=== PATIENT | male | born 1995 | race Caucasian/White ===

== ENCOUNTER 2018-09-05 12:34 | Emergency (ER) | payer SELFPAY ==
[2018-09-05 12:35] VITALS: BP 113/50; PULSE 65; RESP 16; TEMP 36.6; O2SAT 98; BMI 25.0
--- NOTE | 2018-09-05 12:42 | RAD_ITS ---
STUDY: X-RAY - LEFT HAND REASON FOR EXAM: Male, 23 years old. Laceration. TECHNIQUE: 3 view(s) of the hand. COMPARISON: None. FINDINGS: Normal radiocarpal articulation. Normal distal radioulnar joint. Normal visualized carpal bones. Normal carpal articulations Normal carpometacarpal articulation of the thumb. Normal second through fifth carpometacarpal joints. Normal metacarpi. Normal metacarpophalangeal joint of the thumb. Normal interphalangeal joint of the thumb. Normal proximal and distal phalanges of the thumb. Normal metacarpophalangeal joints of the second through fifth fingers. Normal proximal and distal interphalangeal joints of the second through fifth fingers. Normal phalanges of the second through fifth fingers. The soft tissue structures are unremarkable. RAD/Hand Min 3 Views IMPRESSION: Normal x-ray examination of the hand. Electronically Signed: Yao Bhatia MD at 13:18 EDT , Service support ,
[2018-09-05] MEDS: Bupivacaine Mpf 0.5% 30 ML VIAL INFILT (12:57)
--- NOTE | 2018-09-05 13:20 | ED.VISSUMM ---
- ER Visit Summary Date of Service: 09/05/18 Chief Complaint: Left index finger injury History of Present Illness: The patient is a 23 M who is right-hand dominant presents to the emergency department with left index finger injury. Patient states he was using a hedge stripper. He states he is holding it with his right hand and swung it. Came out of the head and got into his finger. He had immediate pain and bleeding. He denies any weakness. His tetanus is up-to-date. He denies any other injury. Physical Examination: Patient has a 3 cm full-thickness laceration that starts on the dorsum of the right index finger. PIP and runs medially. He is able to flex and extend against opposition. His two-point discrimination is preserved. His cap refill is less than 2 seconds. There is no pulsatile bleeding. Test Results: [] Emergency Department Course and Treatment: Plain films were obtained of the hand. There is no evidence of acute fracture or bony disruption. Patient underwent digital block with bupivacaine. Turnicot was applied. The wound was explored. I do not see any definitive evidence of tendinous injury. He is able to fully range. The laceration does not extend into the joint. There is no evidence of arterial injury. The wound was aggressively irrigated. It was closed loosely with 6 simple interrupted suture. As there was deep tissue injury, I am going to place him on Keflex. I am going to have the patient follow-up with orthopedics for reevaluation within the next 3 days. I also counseled him that if his symptoms are worsening, he has any increasing redness, he should return to the emergency department if he cannot be seen. He is comfortable with this plan of care. Treatment Plan: [] Disposition: Discharge Impression: 1. 3 cm left index finger laceration This note was generated with [employer] dictation software. It may contain incorrect words, spelling, and punctuation that were not noted in review of the chart prior to signing ED Disposition - Plan for ED Patient: Instructions: LACERATION, Hand Prescriptions: Cephalexin [Keflex] 500 mg PO Q6 #40 cap Prescription Printed Referrals: Joaquin Quan MD [STAFF PHYSICIAN] - 2 Days for wound check
[2018-09-05 13:42] VITALS: RESP 16
== END 2018-09-05 13:43 | disposition home or self-care (01) ==
PROVIDERS: Emergency Provider Emergency Medicine
DX: S61.211A Laceration without foreign body of left index finger without damage to nail, initial encounter (principal); W26.8XXA Contact with other sharp object(s), not elsewhere classified, initial encounter; Y93.9 Activity, unspecified; Y92.9 Unspecified place or not applicable
CPT/HCPCS: 12002; 73130; 99283

== ENCOUNTER 2019-11-03 15:36 | Emergency (ER) | payer SELFPAY ==
[2019-11-03 15:36] VITALS: BP 133/80; PULSE 102; RESP 16; TEMP 36.4; O2SAT 97; BMI 24.5
--- NOTE | 2019-11-03 15:53 | ED.VISSUMM ---
- ER Visit Summary Date of Service: 11/03/19 Chief Complaint: Abdominal pain History of Present Illness: The patient is a 24 M who presents with abdominal pain. He has had pain for 2 months. It is intermittent in nature. He describes a dull pain in his epigastric region that comes and goes. Food makes his pain better. He cannot describe any exacerbating factors. He does vomit intermittently without any warning. No diarrhea or constipation. No urinary symptoms. No history of abdominal surgeries. He took nothing for it at home. He does not have a doctor. He missed work today which is why he came into the emergency department to get a work note. Physical Examination: Vital signs reviewed. HEENT exam unremarkable. Heart is regular rate and rhythm without murmurs. Lungs are clear to auscultation. Abdomen is soft and nontender. Extremities reveal no edema. Skin exam normal. Neurologic exam normal. Test Results: None performed Emergency Department Course and Treatment: The patient appears very well. His vital signs are normal. Do not feel he requires any laboratory studies or imaging at this time. I will treat him with a GI cocktail. He will continue [id number] medications at home. I will give him a PCP to follow-up with. Treatment Plan: [] Disposition: Discharge Impression: Epigastric abdominal pain This note was generated with [employer] dictation software. It may contain incorrect words, spelling, and punctuation that were not noted in review of the chart prior to signing ED Disposition - Plan for ED Patient: Disposition: Home or Assisted Living Instructions: ED Unknown Causes of Abdominal Pain Male Referrals: Care Physician,No Primary [Primary Care Provider] - Remigio Harper MD [STAFF PHYSICIAN] -
[2019-11-03] MEDS: Mag Hydrox/Al Hydrox/Simeth 30 ML UDC PO (16:09)
== END 2019-11-03 16:29 | disposition home or self-care (01) ==
LOC: ED 16:15
PROVIDERS: Emergency Provider Emergency Medicine
DX: R10.13 Epigastric pain (principal); R11.2 Nausea with vomiting, unspecified; Z72.0 Tobacco use
CPT/HCPCS: 99283

== ENCOUNTER 2019-12-23 09:11 | Emergency (ER) | payer SELFPAY ==
[2019-12-23 09:12] VITALS: BP 96/82; PULSE 100; RESP 17; TEMP 37; O2SAT 100; BMI 29.0
--- NOTE | 2019-12-23 09:21 | ED.VIS.GEN ---
History of Present Illness Informant: Patient Onset: Yesterday Timing: Intermittent Narrative: 24-year-old male with no past medical history presents with complaints of right upper quadrant abdominal pain. He states yesterday morning he was turning at work when he felt a sharp and aching pain in this area that lasted approximately 20 minutes. He was not lifting anything heavy and it persisted despite him taking a break from work. Today he had RUQ pain again this morning while smoking. It resolved without intervention. No pain now. Denies fevers, chills, nausea, vomiting, constipation, diarrhea, blood in stool, urinary symptoms, or back pain. Denies cough, chest pain, shortness of breath, leg pain or swelling, recent surgery or travel, or history of DVT/PE. No history of abdominal surgeries. <Tahmina Henry - Last Filed: 12/23/19 10:16> <Sharif Morales - Last Filed: 12/23/19 10:19> Chief Complaint: Abd Pain Past Medical History Past Medical History: None Surgical History: no surgical history Smoking Status: Current every day smoker <Tahmina Henry - Last Filed: 12/23/19 10:16> <Sharif Morales - Last Filed: 12/23/19 10:19> - Allergies and Home Meds Allergies/Adverse Reactions: Allergies SILVER Adverse Reaction (Mild, Uncoded 12/23/19 09:11) Rash Primary Care Physician: Care Physician,No Primary [Primary Care Provider] - Review of Systems General: Denies: Chills, Fever, Sweats Eyes: Denies: Visual changes - bilaterally, Diplopia ENT: Denies: Rhinorrhea, Sore throat Cardiovascular: Denies: Chest pain, Palpitations Respiratory: Denies: Dyspnea, Cough, Dyspnea on exertion Gastrointestinal: Reports: Abdominal pain. Denies: Nausea, Vomiting, Diarrhea, Melena, Hematochezia Genitourinary: Denies: Dysuria, Hematuria, Frequency Musculoskeletal: Denies: Back pain, Extremity Pain Skin: Denies: Rash, Wounds Neurological: Denies: Headache, Weakness, Numbness <Tahmina Henry - Last Filed: 12/23/19 10:16> Physical Exam Vital Signs/Narrative: Vital Signs Temp Pulse Resp BP Pulse Ox 12/23/19 09:12 98.6 F 100 17 96/82 H 100 General: Well nourished, Well developed, No Acute Distress Head: Normocephalic, Atraumatic Eyes: Perrl, EOMI ENT: Moist mucous membranes, No rhinorrhea Neck: Supple, Nontender Cardiovascular: Regular rate, Regular rhythm, No murmurs Respiratory: No distress, CTA bilaterally, Chest nontender Abdomen: Soft, Nondistended, Normal bowel sounds, Tender, - - Mild tenderness in RUQ. Soft with no guarding or rebound. Negative Whitley's sign. Back: Nontender, Normal Inspection Extremities: Nontender, No edema Skin: Normal color, No rash Neurological: Alert, Oriented x3, Cranial nerves II-XII grossly intact, Normal Strength, Normal Sensation Psychological: Normal affect, Normal Mood <Tahmina Henry - Last Filed: 12/23/19 10:16> Vital Signs/Narrative: Vital Signs Temp Pulse Resp BP Pulse Ox 12/23/19 09:12 98.6 F 100 17 96/82 H 100 <Sharif Morales - Last Filed: 12/23/19 10:19> Diagnostic/Tx/Re-eval Laboratory Data 12/23/19 12/23/19 12/23/19 09:24 09:24 09:44 WBC 4.8 RBC 4.94 Hgb 15.6 Hct 44.9 MCV 90.9 MCH 31.6 MCHC 34.7 RDW Std Deviation 38.9 RDW Coeff of Kyle 11.8 Plt Count 200 MPV 9.5 Immature Gran % (Auto) 0.200 Neut % (Auto) 59.1 Lymph % (Auto) 29.7 [place] % (Auto) 9.8 Eos % (Auto) 1.0 Baso % (Auto) 0.2 Absolute Neuts (auto) 2.8 Absolute Lymphs (auto) 1.43 Nucleated RBC % 0 Sodium 141 Potassium 3.7 Chloride 109 H Carbon Dioxide 26.0 Anion Gap 6 BUN 13 Creatinine 1.10 Estim Creat Clear Calc 94.25 Est GFR (MDRD) Af Amer 106 Est GFR (MDRD) Non-Af 87 BUN/Creatinine Ratio 11.8 Glucose 106 Calcium 8.8 Total Bilirubin 0.60 AST 22 ALT 41 Alkaline Phosphatase 84 Total Protein 7.9 Albumin 4.3 Globulin 3.6 Albumin/Globulin Ratio 1.2 Lipase 111 Urine Color Yellow Urine Clarity Sl. Cloudy Urine pH 6.0 Ur Specific [place] 1.010 Urine Protein Negative Urine Glucose (UA) Normal Urine Ketones Negative Urine Occult Blood Negative Urine Nitrite Negative Urine Bilirubin Negative Urine Urobilinogen Normal Ur Leukocyte Esterase Negative Urine RBC 0 SEEN Urine WBC 0 SEEN Ur Squamous Epith Cells 0-5 SEEN Urine Bacteria 0 SEEN Urine Mucus 0 SEEN - Medical Decision Making Patient presented with RUQ abdominal pain. He is currently asymptomatic. He appears well nontoxic and is sitting in bed in no distress. He had very mild tenderness to palpation in the right upper quadrant but abdomen is soft with no peritoneal signs. Labs and urinalysis are unremarkable. With serial negative abdominal exams there is no indication for imaging. He is tolerating PO without issues. At this time he is stable for outpatient follow up. Discussed return precautions. He was agreeable and discharged home in stable condition. <Tahmina Henry - Last Filed: 12/23/19 10:16> - Medical Decision Making I supervised the PA and have performed my own pertinent history and physical. Results and treatment plan were discussed. HPI: Patient reports that while he was at work last night he had the onset of right upper quadrant pain. States that it resolved after a short period of time and is returned today. He denies any associated nausea, vomiting, or diarrhea. He is never had this in the past. He denies any spicy or fatty food intolerance. PE: Vitals: Stable. Afebrile. General: Well-nourished and well-developed. Head: Normocephalic atraumatic. Neck: Supple, no lymphadenopathy. No JVD. Nontender. Cardiovascular: Regular rate and rhythm. No murmurs. Respiratory: No respiratory distress. Clear to auscultation bilaterally. Abdominal: Soft, localized area of tenderness in the right upper quadrant is approximately 2 cm in diameter, nondistended, normal bowel sounds. No guarding, rebound, or peritoneal signs. Back: Nontender. Extremities: Nontender, no edema. Skin: Normal color, no rash. Neurologic: Alert and oriented ?3. Cranial nerves II through XII are intact. Normal strength and sensation. Psych: Normal affect. Emergency Department course: Labs are unremarkable. Patient's history and exam are not typical of cholecystitis. Treatment Plan: Patient's labs and exam are not consistent with cholecystitis. I feel he is a suitable candidate for further outpatient evaluation. He will be discharged instructions follow-up his primary care physician 3 to 5 days if not improving. Return to the emergency department for any worsening symptoms. This note was generated with [employer] dictation software. It may contain incorrect words, spelling, and punctuation that were not noted in review of the chart prior to signing. <Sharif Morales - Last Filed: 12/23/19 10:19> ED Disposition <Tahmina Henry - Last Filed: 12/23/19 10:16> <Sharif Morales - Last Filed: 12/23/19 10:19> - Plan for ED Patient: Disposition: Home or Assisted Living Diagnosis: RUQ abdominal pain Instructions: ED Unknown Causes of Abdominal Pain Male Referrals: Care Physician,No Primary [Primary Care Provider] -
[2019-12-23 09:30] LABS: Absolute Lymphocyte Count 1.43 X10^3/uL (0.83-4.51); Absolute Neutrophil Count 2.8 X10^3/uL (2.0-7.7); Basophil# 0.01 X10^3/uL; Basophil% 0.2 % (0-1); Eosinophil# 0.05 X10^3/uL; Hematocrit 44.9 % (40-54); Hemoglobin 15.6 g/dL (13.0-16.5); Lymphocyte # 1.43 X10^3/ul (4.0); Lymphocyte % 29.7 % (19-41); Mean Corp Hgb Conc 34.7 g/dL (32-36); Mean Corpuscular Hgb 31.6 pg (27.0-32.0); Mean Corpuscular Volume 90.9 fL (80-94); Mean Platelet Vol. 9.5 fl (6.2-12.0); Monocyte# 0.47 X10^3/uL; Monocyte% 9.8 % (0-10); NRBC Flagged by Analyzer 0 % (0-5); Neutrophil # 2.84 X10^3/uL (2.7-7.7); Neutrophil % 59.1 % (47-70); Platelet Count 200 K/mm3 (150-450); RBC Distribution Width CV 11.8 % (11.6-14.6); RBC Distribution Width SD 38.9 fl (35.1-43.9); Red Blood Count 4.94 M/mm3 (4.6-6.2); White Blood Count 4.8 K/mm3 (4.4-11.0)
[2019-12-23 09:46] LABS: ALB/GLOB Ratio 1.2 RATIO (0.9-2.4); AST(SGOT) 22 U/L (15-37); Alanine Aminotransfer ALT/SGPT 41 U/L (16-61); Albumin, Serum 4.3 g/dL (3.2-5.0); Alkaline Phosphatase 84 U/L (45-117); Anion Gap 6 (5-15); BUN 13 mg/dL (7-18); BUN/Creat Ratio 11.8 RATIO (10-20); Calcium,Total 8.8 mg/dL (8.5-10.1); Chloride 109 mmol/L (98-107); EST Glomerular Filtration Rate 87 mL/min (>60); Est Glom Filt Rate - Afr Amer 106 mL/min (>60); Estimated Creatinine Clearance 94.25 ml/min; Globulin 3.6 g/dL (2.2-4.2); Glucose 106 mg/dL (74-106); Lipase 111 U/L (73-393); Potassium 3.7 mmol/L (3.5-5.1); Protein, Total 7.9 g/dL (6.4-8.2); Sodium Level 141 mmol/L (136-145)
[2019-12-23 09:51] LABS: Bacteria 0 SEEN /hpf (None Seen); Mucous, Urine 0 SEEN /hpf (<or=2+); Red Blood Cells-Urine 0 SEEN /hpf (0-5); White Blood Cells 0 SEEN /hpf (0-5)
[2019-12-23 09:53] LABS: Color, Urine Yellow (Yellow); Glucose, Dipstick Normal (Normal); Ketone-Dipstick Negative (Negative); Leukocyte Esterase-Dipstick Negative /ul (Negative); Nitrite-Dipstick Negative (Negative); Occult Blood-Urine Negative /ul (Negative); Protein-Dipstick Negative (Negative); Urine Bilirubin Dipstick Negative (Negative); Urine Clarity Sl. Cloudy (Clear); Urine Urobilinogen Normal (Normal)
[2019-12-23 09:59] LABS: Squamous Epithelial Cells - UA 0-5 SEEN /hpf (0-5)
[2019-12-23 10:22] VITALS: PULSE 71; RESP 16; O2SAT 98
== END 2019-12-23 10:23 | disposition home or self-care (01) ==
PROVIDERS: Emergency Provider Physician Assistant
DX: R10.11 Right upper quadrant pain (principal); F17.200 Nicotine dependence, unspecified, uncomplicated
CPT/HCPCS: 80053; 81001; 83690; 85025; 99281; 99284; A4216

== ENCOUNTER 2020-07-26 17:53 | Emergency (ER) | payer OTHER, SELFPAY ==
[2020-07-26 17:53] VITALS: BP 141/70; PULSE 108; RESP 16; TEMP 35.8; O2SAT 96; BMI 21.9
--- NOTE | 2020-07-26 18:17 | RAD_ITS ---
INDICATION: SOB EXAMINATION/TECHNIQUE: X-RAY - XR Chest 2 Views COMPARISON: None. FINDINGS: The lungs are clear. Hyperinflated lungs. The cardiomediastinal silhouette is unremarkable. No pleural effusion or pneumothorax. No acute osseous abnormalities. RAD/Chest PA and Lateral IMPRESSION: No acute radiographic abnormalities. Hyperinflated lungs which can be seen in asthma. Electronically Signed: Toro Cabezas MD at 19:18 EDT Tel , Service support ,
--- NOTE | 2020-07-26 18:53 | EDS_ITS ---
HPI History of Present Illness Chief Complaint: Shortness of Breath Informant: patient Onset/Context/Timing Onset: Days Context: gradual Timing: Intermittent Current Severity: Mild Maximum Severity: Mild Worsened by: Coughing Relieved by: Nothing Associated Symptoms cough Chest Pain: Positive for None Narrative Narrative: The patient presents to the emergency department shortness of breath, cough, posttussive emesis. He states that for the past 2 or 3 days, he will get symptoms where he feels a burning in his midepigastric area. He states he will then start to cough, and then will vomit. He states it happened for 5 times. He states sometimes, it feels it is hard to catch his breath. He denies any history of underlying lung disease. He does smoke. He denies any history of asthma or allergies. PFSH PFSH Home Medications albuterol sulfate [Ventolin HFA] 2 puff INHALATION Q4H PRN PRN #1 inhaler 07/26/20 [Rx Last Taken Unknown] famotidine [Pepcid] 20 mg PO BID #20 tab 07/26/20 [Rx Last Taken Unknown] Allergy/AdvReac Type Severity Reaction Status Date / Time No Known Allergies Allergy Verified 07/26/20 17:56 Social History Smoking Status: Current every day smoker EXAM Physical Exam Const Vital Signs: 07/26/20 17:53 07/26/20 19:02 Temperature 96.5 F L Temperature Source Temporal Pulse Rate 108 H Respiratory Rate 16 Respiratory Effort Normal Non-Labored Respiratory Depth Normal Respiratory Pattern Normal Blood Pressure 141/70 H Blood Pressure Mean 93 Pulse Ox 96 Oxygen Delivery Method Room Air Room Air MDM [facility] Narrative Medical decision making narrative: Patient presents with cough, shortness of breath, nausea, and vomiting. His lungs have a scant wheeze that clears with cough. He is afebrile. He said no chest pain. I do feel that his presentation is likely multifactorial. It does sound like he has been having significant GERD with reflux, then goes into coughing fits, and vomits. His abdomen is soft and nontender. I did obtain chest x-ray. This is reviewed by both myself and the radiologist. There is no focal infiltrative process. Patient was given a GI cocktail and Zofran with some improvement of his symptoms. At this point, I am going to prescribe him an inhaler and Pepcid. I do feel that he is safe for outpatient therapy. Impression 1. Bronchospasm 2. GERD Lab Data Attestation: I reviewed the patient's lab results. Radiography Chest X-Ray - ED: 1 View, Read by ED Physician, Heart, Lungs, Mediastinum, Bony Structures and No Acute Disease Diagnostic Testing: Radiology Impression Chest X-Ray 07/26/20 18:17 IMPRESSION: No acute radiographic abnormalities. Hyperinflated lungs which can be seen in asthma. Electronically Signed: Toro Cabezas MD at 19:18 EDT Tel , Service support , Discharge Plan Triage Chief Complaint: Shortness of Breath ED Provider: Mauricio Goetz Dx/Rx/DC Orders Instructions: ED Bronchospasm (Adult) Prescriptions: New albuterol sulfate [Ventolin HFA] 1 INHALER inhaler 2 puff inhalation Q4H PRN PRN (Reason: Wheezing) Qty: 1 RF: 0 famotidine [Pepcid] 20 mg tablet 20 mg PO BID Qty: 20 RF: 0 Primary Care Provider: Care Physician,No Primary Referrals: Care Physician,No Primary [Primary Care Provider] -
[2020-07-26] MEDS: Mag Hydrox/Al Hydrox/Simeth 30 ML UDC PO (19:00)
[2020-07-26] MEDS: Ondansetron ODT 4 MG Tablet PO (19:01)
[2020-07-26 19:02] VITALS: O2SAT 100
== END 2020-07-26 19:45 | disposition home or self-care (01) ==
LOC: ED 19:43
PROVIDERS: Emergency Provider Emergency Medicine
DX: J98.01 Acute bronchospasm (principal); K21.9 Gastro-esophageal reflux disease without esophagitis; F17.200 Nicotine dependence, unspecified, uncomplicated
CPT/HCPCS: 71046; 99282

== ENCOUNTER 2020-08-07 16:35 | Emergency (ER) | payer SELFPAY ==
[2020-08-07 16:36] VITALS: BP 158/87; PULSE 90; RESP 16; TEMP 37.4; BMI 23.3
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
--- NOTE | 2020-08-07 17:10 | RAD_ITS ---
STUDY: X-RAY - RIGHT FOOT CLINICAL: Male, 25 years old. Injury/Pain TECHNIQUE: 3 view(s) of the foot. COMPARISON: None. FINDINGS: Normal talus, calcaneus, and tarsal bones. Normal visualized subtalar, talonavicular, calcaneocuboid, tarsal and tarsometatarsal articulations. Normal metatarsi. Normal metatarsophalangeal joint of the great toe. Normal tibial and fibular sesamoid bones. Normal interphalangeal joint of the great toe. Normal phalanges of the great toe. Normal second through fifth metatarsophalangeal joints. Normal interphalangeal joints and phalanges of the lesser toes. The soft tissue structures are unremarkable. RAD/Foot min 3 Views IMPRESSION: Normal x-ray examination of the foot. Electronically Signed: Alhaji Snow DO at 17:38 EDT Tel [phone], Service support ,
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
== END 2020-08-07 18:54 | disposition home or self-care (01) ==
PROVIDERS: Emergency Provider Emergency Medicine
DX: S90.31XA Contusion of right foot, initial encounter (principal); V86.79XA Person on outside of other special all-terrain or other off-road motor vehicles injured in nontraffic accident, initial encounter; Y93.9 Activity, unspecified; Y92.9 Unspecified place or not applicable; F17.210 Nicotine dependence, cigarettes, uncomplicated
CPT/HCPCS: 73610; 73630; 99283

== ENCOUNTER 2020-08-20 03:55 | Emergency (ER) | payer SELFPAY ==
[2020-08-20 03:56] VITALS: BP 113/68; PULSE 80; RESP 16; TEMP 36.1; O2SAT 100; BMI 21.9
--- NOTE | 2020-08-20 04:32 | RAD_ITS ---
HISTORY: cough EXAM: XR Chest 1 View: COMPARISON: July 26, 2020 FINDINGS: # of images incl. paperwork: 2 Lungs are clear. Heart is not enlarged. No acute osseous pathology perceived. Pulmonary vascularity is distinct. No effusions. RAD/Chest 1 View (Portable) IMPRESSION: Normal. at 0511 Reported and signed by: Mane Vazquez MD Electronically Signed: Mane Vazquez MD at 5:10 EDT Tel , Service support ,
--- NOTE | 2020-08-20 04:56 | EX.ED.DYSGE1 ---
HPI History of Present Illness Chief Complaint: Nausea/Vomiting Informant: patient Onset/Context/Timing Onset: Weeks Context: Gradual Onset Timing: Intermittent Current Severity: Mild Maximum Severity: Mild Narrative Narrative: Patient presents secondary to vomiting each morning for the past week. He states he states he will wake up with burning sensation down the center of his chest. He will then vomit once and then feel fine the rest of the day. He does report the vomitus appears slightly red in color. He states he is assuming he has reflux disease. He is also concerned about a recent cough and states he was exposed to multiple ill children recently. PFSH PFSH no medical history Home Medications omeprazole 40 mg PO DAILY #30 cap 08/20/20 [Rx Last Taken Unknown] Allergy/AdvReac Type Severity Reaction Status Date / Time SILVER AdvReac Mild Rash Uncoded 08/01/20 14:13 Social History Smoking Status: Current every day smoker tobacco type: cigarettes ROS ROS ED Constitutional Constitutional ED: Denies chills or fever(s) Eyes Eyes: Denies change in vision ENT ENT ED: Denies sore throat Cardiovascular Cardiovascular: Reports chest pain Respiratory/Chest Respiratory/Chest: Reports cough; Denies dyspnea Gastrointestinal Gastrointestinal: Denies abdominal pain, diarrhea, nausea or vomiting Genitourinary Genitourinary ED: Denies dysuria Musculoskeletal Musculoskeletal: Denies back pain Integumentary Denies rash Neurologic Neurologic: Denies headache(s) or weakness Psychiatric Psychiatric: Denies anxiety or depression Endocrine Endocrinology: Denies polydipsia or polyuria Allergic/Immunologic Allergic/Immunologic ED: Denies urticaria EXAM Physical Exam Const Vital Signs: 08/20/20 03:56 Temperature 97 F L Temperature Source Temporal Pulse Rate 80 Respiratory Rate 16 Blood Pressure 113/68 Blood Pressure Mean 83 Pulse Ox 100 Positive well nourished and well developed General Appearance ED: well developed HEENT Reports normocephalic and head/scalp atraumatic Eyes PERRL and EOMs intact bilaterally Neck supple Chest Wall inspection of chest normal and palpation of chest normal Resp normal respiratory effort and clear to auscultation bilaterally Cardio regular rate and regular rhythm GI normal to inspection, nondistended, normoactive bowel sounds Palpation: soft Extremity normal to inspection Neuro oriented x3 and no sensory deficits noted Sensorium / Orientation: alert Motor Exam: strength 5/5 throughout Psych mental status grossly normal Skin no rashes or lesions noted MDM MDM MDM Narrative Medical decision making narrative: Portable chest x-ray is obtained. Patient is given a dose of p.o. Protonix. Radiography Chest X-Ray - ED: 1 View, Read by ED Physician, Normal, Heart, Lungs and Mediastinum Diagnostic Testing: Radiology Impression Chest X-Ray 08/20/20 04:32 IMPRESSION: Normal. at 0511 Reported and signed by: Mane Vazquez MD Electronically Signed: Mane Vazquez MD at 5:10 EDT Tel , Service support , Treatment and Re-Evaluation Comments:: Patient is given a prescription for Prilosec. He is referred to local PCP to establish primary care. Discharge Plan Triage Chief Complaint: Nausea/Vomiting ED Provider: Macy Granados Dx/Rx/DC Orders Clinical Impression: GERD (gastroesophageal reflux disease) Instructions: ED GERD (Adult) Prescriptions: New omeprazole 40 mg capsule,delayed release(DR/EC) 40 mg PO DAILY Qty: 30 RF: 0 Primary Care Provider: Care Physician,No Primary Referrals: Ronak Marcial MD [STAFF PHYSICIAN] - As Needed Care Physician,No Primary [Primary Care Provider] - Disposition Disposition: Home, self care Discharge Date/Time: 08/20/20 05:11
[2020-08-20] MEDS: Pantoprazole Sodium 40 MG Tablet PO (05:10)
== END 2020-08-20 05:11 | disposition home or self-care (01) ==
LOC: ED 05:05
PROVIDERS: Emergency Provider Emergency Medicine
DX: K21.9 Gastro-esophageal reflux disease without esophagitis (principal); F17.210 Nicotine dependence, cigarettes, uncomplicated
CPT/HCPCS: 71045; 99283

== ENCOUNTER 2020-08-27 03:46 | Emergency (ER) | payer SELFPAY ==
[2020-08-27 03:47] VITALS: BP 127/83; PULSE 61; RESP 18; TEMP 35.8; O2SAT 100; BMI 25.3
--- NOTE | 2020-08-27 03:50 | CT_ITS ---
STUDY: CTA CHEST REASON FOR EXAM: Male, 25 years old. Shortness of breath, hemoptysis. RADIATION DOSAGE (If Supplied By Facility): CTDIvol = ( 11.33 ) mGy, DLP = ( 364.55 ) mGycm TECHNIQUE: The examination was performed with the intravenous administration of IV 75mL Isovue-300. Post-processing of the angiographic images was performed, with multiplanar reformation and maximum intensity projections.. Individualized dose optimization techniques were used for this CT. COMPARISON: Chest x-ray August 20, 2020. FINDINGS: Normal enhancement of the main pulmonary artery and right and left pulmonary arteries. Normal enhancement of the bilateral peripheral pulmonary arteries. There is no demonstrated pulmonary embolism. Normal thoracic aorta and visualized great vessels. There is no demonstrated aortic dissection. Normal heart and pericardium. Normal mediastinum. Normal hilar regions. Normal visualized trachea and bronchi. The lungs are well expanded. No focal infiltrates or effusions. No pneumothorax. Normal pleura. Normal chest wall structures. Normal osseous structures. Normal visualized upper abdomen. CT/CTA Chest W/WO Contrast IMPRESSION: Normal CTA chest examination, without a demonstrated pulmonary embolism or arterial dissection. Electronically Signed: George Guerrero MD at 5:41 EDT , Service support ,
--- NOTE | 2020-08-27 03:51 | ED.VIS.DYS ---
HPI History of Present Illness Chief Complaint: Shortness of Breath Informant: patient Onset/Context/Timing Onset: Yesterday Context: gradual Timing: Continuous Quality: Positive for Dyspnea on exertion and Wheezing Current Severity: Moderate Maximum Severity: Moderate Worsened by: Coughing Relieved by: Nothing Associated Symptoms cough Chest Pain: Positive for Intermittent and Pleuritic Narrative Narrative: Patient is a 25-year-old male that is with no significant medical history the presents to emergency department cough, shortness of breath, and hemoptysis. Patient states is been going on for about 2 days. He states his cough worsened tonight he had some blood mixed with his sputum. He states he feels like he cannot catch his breath. Patient did have a recent negative chest x-ray. He denies weight loss. He denies night sweats. He has no history of pulmonary embolus. PFSH PFSH Home Medications albuterol sulfate [Ventolin HFA] 2 puff INHALATION Q4H PRN PRN #1 inhaler 08/27/20 [Rx Last Taken Unknown] doxycycline monohydrate 100 mg PO BID #14 capsule 08/27/20 [Rx Last Taken Unknown] Allergy/AdvReac Type Severity Reaction Status Date / Time SILVER AdvReac Mild Rash Uncoded 08/27/20 03:47 Social History Smoking Status: Current every day smoker tobacco type: cigarettes ROS ROS ED Constitutional Constitutional ED: Denies chills or fever(s) Eyes Eyes: Denies blurry vision or change in vision ENT ENT ED: Denies ear pain or sore throat Cardiovascular Cardiovascular: Denies chest pain or palpitations Respiratory/Chest Respiratory/Chest: Reports cough, dyspnea on exertion and sputum; Denies dyspnea Gastrointestinal Gastrointestinal: Denies abdominal pain, nausea or vomiting Genitourinary Genitourinary ED: Denies dysuria or urinary frequency Musculoskeletal Musculoskeletal: Denies arthralgias or myalgias Integumentary Denies rash Neurologic Neurologic: Denies headache(s) or paresthesias Psychiatric Psychiatric: Denies anxiety or depression Endocrine Endocrinology: Denies polydipsia or polyuria Allergic/Immunologic Allergic/Immunologic ED: Denies urticaria EXAM Physical Exam Const Vital Signs: 08/27/20 03:47 08/27/20 03:53 Temperature 96.5 F L Temperature Source Temporal Pulse Rate 61 Respiratory Rate 18 Respiratory Effort Short of Breath Respiratory Depth Shallow Respiratory Pattern Normal Blood Pressure 127/83 H Blood Pressure Mean 97 Pulse Ox 100 Oxygen Delivery Method Room Air Positive well nourished and well developed General Appearance ED: well developed HEENT Reports normocephalic, head/scalp atraumatic and moist mucous membranes Eyes PERRL and EOMs intact bilaterally Neck no lymphadenopathy and supple General: Negative for tenderness Chest Wall inspection of chest normal Resp normal respiratory effort and clear to auscultation bilaterally Cardio regular rate, regular rhythm and no murmurs GI normal to inspection, nondistended, normoactive bowel sounds Palpation: Negative for tender, guarding or rebound tenderness present Back/Spine no CVA tenderness Cervical Spine: Negative for cervical spine tenderness Thoracic Spine / Upper Back: Negative for thoracic spinal tenderness Extremity normal to inspection General Extremety ED: Negative for tenderness Neuro oriented x3 and CN's II-XII intact bilaterally Neuro Narrative: No focal deficits appreciated. Sensorium / Orientation: alert Psych mental status grossly normal Skin no rashes or lesions noted, no wounds and skin turgor normal MDM MDM MDM Narrative Medical decision making narrative: The patient presents with cough, shortness of breath, hemoptysis. He is not tachycardic or hypoxic. However, given his dyspnea I did want to rule out pulmonary embolus. Screening labs were obtained were unremarkable. Patient underwent CTA. Is reviewed by both myself and the radiologist. There is no evidence of acute pulmonary embolus. The patient is resting comfortably. His metabolic work-up is unremarkable. He has no hypoxia. With his cough and scant hemoptysis, I am going to treat him as an infectious bronchitis. He will also be given an inhaler. The patient will be discharged home. Impression 1. Dyspnea Lab Data Attestation: I reviewed the patient's lab results. Labs: Laboratory Results - last 24 hr 08/27/20 08/27/20 03:57 03:57 WBC 6.9 RBC 4.79 Hgb 15.2 Hct 44.1 MCV 92.1 MCH 31.7 MCHC 34.5 RDW Std Deviation 41.4 RDW Coeff of Kyle 12.3 Plt Count 214 MPV 9.3 Immature Gran % (Auto) 0.300 Neut % (Auto) 59.8 Lymph % (Auto) 28.3 [place] % (Auto) 9.4 Eos % (Auto) 1.9 Baso % (Auto) 0.3 Absolute Neuts (auto) 4.1 Absolute Lymphs (auto) 1.95 Nucleated RBC % 0 Sodium 141 Potassium 4.0 Chloride 107 Carbon Dioxide 28.0 Anion Gap 6 BUN 9 Creatinine 0.92 Estim Creat Clear Calc 115.75 Est GFR (MDRD) Af Amer 129 Est GFR (MDRD) Non-Af 107 BUN/Creatinine Ratio 9.8 L Glucose 101 Calcium 8.3 L Total Bilirubin 0.50 AST 17 ALT 29 Alkaline Phosphatase 94 Total Protein 7.0 Albumin 3.6 Globulin 3.4 Albumin/Globulin Ratio 1.1 Radiography Diagnostic Testing: Radiology Impression Chest CTA 08/27/20 03:50 IMPRESSION: Normal CTA chest examination, without a demonstrated pulmonary embolism or arterial dissection. Electronically Signed: George Guerrero MD at 5:41 EDT , Service support , Discharge Plan Triage Chief Complaint: Shortness of Breath ED Provider: Mauricio Goetz Dx/Rx/DC Orders Instructions: ED Bronchitis with Wheezing (Adult) Prescriptions: New doxycycline monohydrate 100 MG capsule 100 mg PO BID Qty: 14 RF: 0 albuterol sulfate [Ventolin HFA] 1 INHALER inhaler 2 puff inhalation Q4H PRN PRN (Reason: Wheezing) Qty: 1 RF: 0 Primary Care Provider: Care Physician,No Primary Referrals: Care Physician,No Primary [Primary Care Provider] -
[2020-08-27] MEDS: 0.9% Normal Saline 1,000 ML 1000 ML IV (03:56)
[2020-08-27 04:02] LABS: Absolute Lymphocyte Count 1.95 X10^3/uL (0.83-4.51); Absolute Neutrophil Count 4.1 X10^3/uL (2.0-7.7); Basophil# 0.02 X10^3/uL; Basophil% 0.3 % (0-1); Eosinophil# 0.13 X10^3/uL; Eosinophils% 1.9 % (0-5); Hematocrit 44.1 % (40-54); Hemoglobin 15.2 g/dL (13.0-16.5); Lymphocyte # 1.95 X10^3/ul (0.83-4.51); Lymphocyte % 28.3 % (19-41); Mean Corp Hgb Conc 34.5 g/dL (32-36); Mean Corpuscular Hgb 31.7 pg (27.0-32.0); Mean Corpuscular Volume 92.1 fL (80-94); Mean Platelet Vol. 9.3 fl (6.2-12.0); Monocyte# 0.65 X10^3/uL; Monocyte% 9.4 % (0-10); NRBC Flagged by Analyzer 0 % (0-5); Neutrophil # 4.12 X10^3/uL (2.7-7.7); Neutrophil % 59.8 % (47-70); Platelet Count 214 K/mm3 (150-450); RBC Distribution Width CV 12.3 % (11.6-14.6); RBC Distribution Width SD 41.4 fl (35.1-43.9); Red Blood Count 4.79 M/mm3 (4.6-6.2); White Blood Count 6.9 K/mm3 (4.4-11.0)
[2020-08-27 04:27] LABS: ALB/GLOB Ratio 1.1 RATIO (0.9-2.4); AST(SGOT) 17 U/L (15-37); Alanine Aminotransfer ALT/SGPT 29 U/L (16-61); Albumin, Serum 3.6 g/dL (3.2-5.0); Alkaline Phosphatase 94 U/L (45-117); Anion Gap 6 (5-15); BUN 9 mg/dL (7-18); BUN/Creat Ratio 9.8 RATIO (10-20); Calcium,Total 8.3 mg/dL (8.5-10.1); Chloride 107 mmol/L (98-107); Creatinine, Serum 0.92 mg/dL (0.70-1.30); EST Glomerular Filtration Rate 107 mL/min (>60); Est Glom Filt Rate - Afr Amer 129 mL/min (>60); Estimated Creatinine Clearance 115.75 ml/min; Globulin 3.4 g/dL (2.2-4.2); Glucose 101 mg/dL (74-106); Sodium Level 141 mmol/L (136-145)
[2020-08-27 05:43] VITALS: BP 113/58; PULSE 60; RESP 19; TEMP 36.8; O2SAT 99
== END 2020-08-27 05:47 | disposition home or self-care (01) ==
LOC: ED 05:22
PROVIDERS: Emergency Provider Emergency Medicine
DX: J40 Bronchitis, not specified as acute or chronic (principal); F17.210 Nicotine dependence, cigarettes, uncomplicated
CPT/HCPCS: 71275; 80053; 85025; 96360; 99284; J7030

== ENCOUNTER 2020-09-05 06:41 | Emergency (ER) | payer SELFPAY ==
[2020-09-05 06:41] VITALS: BP 132/68; PULSE 116; RESP 18; TEMP 36.3; O2SAT 98; BMI 23.8
[2020-09-05 06:46] VITALS: BP 132/68; PULSE 116; RESP 18; TEMP 36.3; O2SAT 98
--- NOTE | 2020-09-05 06:53 | NURSING ---
CALLED AND LEFT MESSAGE ON [facility], PHONE
--- NOTE | 2020-09-05 07:03 | EKG12_ITS ---
Test Reason : SOB Blood Pressure : / mmHG Vent. Rate : 082 BPM Atrial Rate : 082 BPM P-R Int : 144 ms QRS Dur : 100 ms QT Int : 360 ms P-R-T Axes : 063 069 015 degrees QTc Int : 420 ms Normal sinus rhythm Normal ECG Confirmed by SATYA JACKSON, HECTOR ([id number]), publication editor FREDA DIEGO ([id number]) on 09/12/2020 1:00:20 PM Referred By: JHONY Confirmed By:HECTOR HERNADEZ MD
--- NOTE | 2020-09-05 07:03 | CT_ITS ---
STUDY: CTA CHEST REASON FOR EXAM: Male, 25 years old. 2 day history of cough and shortness of breath. Hemoptysis. Metastases user. RADIATION DOSAGE (If Supplied By Facility): CTDIvol = ( 9.78 ) mGy, DLP = ( 336.01 ) mGycm TECHNIQUE: The examination was performed with the intravenous administration of IV 100mL Isovue-370. Post-processing of the angiographic images was performed, with multiplanar reformation and 3D reconstruction. Individualized dose optimization techniques were used for this CT. COMPARISON: Comparison is made with prior study dated 08/27/2020. FINDINGS: Normal enhancement of the main pulmonary artery and right and left pulmonary arteries. Normal enhancement of the bilateral peripheral pulmonary arteries. There is no demonstrated pulmonary embolism. Normal thoracic aorta and visualized great vessels. There is no demonstrated aortic dissection. Normal heart and pericardium. Normal mediastinum. Normal hilar regions. Normal visualized trachea and bronchi. The lungs are well expanded. Normal pulmonary parenchyma. Normal pleura. Normal chest wall structures. Normal osseous structures. Normal visualized upper abdomen. CT/CTA Chest W/WO Contrast IMPRESSION: Normal CTA chest examination, without a demonstrated pulmonary embolism or arterial dissection. Electronically Signed: Joe Nina MD at 8:09 EDT , Service support ,
--- NOTE | 2020-09-05 07:11 | ED.VIS.DYS ---
HPI History of Present Illness Chief Complaint: Shortness of Breath Informant: patient Onset/Context/Timing Onset: Days (2 days) Timing: Intermittent Current Severity: Mild Maximum Severity: Mild Associated Symptoms cough Chest Pain: Positive for None Narrative Narrative: Patient presents secondary to shortness of breath and cough for the past 2 days. He states he is coughing up black stuff and blood. He denies fever or chills. He denies chest pain. He states his child was seen last night for similar cough and shortness of breath but he does not know what the diagnosis was. [facility] Medical History (Updated 09/05/20 @ 08:[address] Macy Granados MD) GERD (gastroesophageal reflux disease) Home Medications benzonatate [Tessalon Perles] 100 mg PO BID PRN #10 cap 09/05/20 [Rx Last Taken Unknown] Allergy/AdvReac Type Severity Reaction Status Date / Time SILVER AdvReac Mild Rash Uncoded 08/27/20 03:47 Social History Smoking Status: Current every day smoker tobacco type: cigarettes ROS ROS ED Constitutional Constitutional ED: Denies chills or fever(s) Eyes Eyes: Denies change in vision ENT ENT ED: Denies sore throat Cardiovascular Cardiovascular: Denies chest pain Respiratory/Chest Respiratory/Chest: Reports cough, dyspnea and other Details: Hemoptysis Gastrointestinal Gastrointestinal: Denies abdominal pain, diarrhea, nausea or vomiting Genitourinary Genitourinary ED: Denies dysuria Musculoskeletal Musculoskeletal: Denies back pain Integumentary Denies rash Neurologic Neurologic: Denies headache(s) or weakness Psychiatric Psychiatric: Denies anxiety or depression Endocrine Endocrinology: Denies polydipsia or polyuria Allergic/Immunologic Allergic/Immunologic ED: Denies urticaria EXAM Physical Exam Const Vital Signs: 09/05/20 06:41 09/05/20 06:46 09/05/20 06:47 Temperature 97.4 F L 97.4 F L Temperature Source Temporal Temporal Pulse Rate 116 H 116 H Respiratory Rate 18 18 Respiratory Effort Short of Breath Respiratory Depth Normal Respiratory Pattern Normal Blood Pressure 132/68 H 132/68 H Blood Pressure Mean 89 89 Pulse Ox 98 98 Oxygen Delivery Method Room Air Room Air Room Air 09/05/20 07:43 09/05/20 08:00 Temperature 97 F L 97 F L Temperature Source Temporal Temporal Pulse Rate 61 61 Respiratory Rate 23 H 23 H Respiratory Effort Respiratory Depth Respiratory Pattern Blood Pressure 123/53 H 123/83 H Blood Pressure Mean 76 96 Pulse Ox 97 97 Oxygen Delivery Method Room Air Positive well nourished and well developed General Appearance ED: well developed HEENT Reports normocephalic and head/scalp atraumatic Eyes PERRL and EOMs intact bilaterally Neck supple Chest Wall inspection of chest normal and palpation of chest normal Resp normal respiratory effort and clear to auscultation bilaterally Cardio regular rate and regular rhythm GI normal to inspection, nondistended, normoactive bowel sounds Palpation: soft Back/Spine no CVA tenderness Extremity normal to inspection Neuro oriented x3 and no sensory deficits noted Sensorium / Orientation: alert Motor Exam: strength 5/5 throughout Psych mental status grossly normal Skin no rashes or lesions noted MDM MDM MDM Narrative Medical decision making narrative: With the patient having hemoptysis work-up is initiated including labs, EKG, CTA chest. Lab Data Attestation: I reviewed the patient's lab results. Labs: Laboratory Results - last 24 hr 09/05/20 09/05/20 07:15 07:15 WBC 5.9 RBC 4.88 Hgb 15.5 Hct 44.2 MCV 90.6 MCH 31.8 MCHC 35.1 RDW Std Deviation 39.9 RDW Coeff of Kyle 12.1 Plt Count 218 MPV 9.1 Immature Gran % (Auto) 0.300 Neut % (Auto) 75.8 H Lymph % (Auto) 17.4 L [place] % (Auto) 5.9 Eos % (Auto) 0.3 Baso % (Auto) 0.3 Absolute Neuts (auto) 4.5 Absolute Lymphs (auto) 1.03 Nucleated RBC % 0 Sodium 137 Potassium 3.3 L Chloride 103 Carbon Dioxide 30.0 Anion Gap 4 L BUN 11 Creatinine 1.16 Estim Creat Clear Calc 91.81 Est GFR (MDRD) Af Amer 99 Est GFR (MDRD) Non-Af 82 BUN/Creatinine Ratio 9.5 L Glucose 106 Calcium 9.0 Radiography Diagnostic Testing: Radiology Impression Chest CTA 09/05/20 07:03 IMPRESSION: Normal CTA chest examination, without a demonstrated pulmonary embolism or arterial dissection. Electronically Signed: Joe Nina MD at 8:09 EDT , Service support , EKG Initial EKG: Attestation: I personally reviewed and interpreted this EKG as follows: Interpretation: Sinus Rhythm (Sinus at 82 with no acute ischemia.) Treatment and Re-Evaluation Comments:: Covid swab was obtained and negative. Lab work is unremarkable other than mildly low potassium. CTA of the chest reveals no evidence of infiltrate, mass, PE, or dissection. On repeat evaluation patient is resting comfortably. Test results discussed with him. Advised he likely has a viral URI and the cough has irritated some of the small blood vessels in the upper airway causing bleeding. He'll be treated with Tessalon Perles and will continue supportive care at home. Discharge Plan Triage Chief Complaint: Shortness of Breath ED Provider: Macy Granados Dx/Rx/DC Orders Clinical Impression: Viral URI, Hemoptysis Instructions: ED Hemoptysis, ED URI, Viral, No Abx (Adult) Prescriptions: New benzonatate [Tessalon Perles] 100 mg capsule 100 mg PO BID PRN (Reason: cough) Qty: 10 RF: 0 Primary Care Provider: Care Physician,No Primary Referrals: Tahmina Gonzalez DO [STAFF PHYSICIAN] - As Needed Care Physician,No Primary [Primary Care Provider] - Disposition Disposition: Home, Self Care
--- NOTE | 2020-09-05 07:11 | NURSING ---
NO OLD EKGS
[2020-09-05 07:30] LABS: Absolute Lymphocyte Count 1.03 X10^3/uL (0.83-4.51); Absolute Neutrophil Count 4.5 X10^3/uL (2.0-7.7); Basophil# 0.02 X10^3/uL; Basophil% 0.3 % (0-1); Eosinophil# 0.02 X10^3/uL; Eosinophils% 0.3 % (0-5); Hematocrit 44.2 % (40-54); Hemoglobin 15.5 g/dL (13.0-16.5); Lymphocyte # 1.03 X10^3/ul (0.83-4.51); Lymphocyte % 17.4 % (19-41); Mean Corp Hgb Conc 35.1 g/dL (32-36); Mean Corpuscular Hgb 31.8 pg (27.0-32.0); Mean Corpuscular Volume 90.6 fL (80-94); Mean Platelet Vol. 9.1 fl (6.2-12.0); Monocyte# 0.35 X10^3/uL; Monocyte% 5.9 % (0-10); NRBC Flagged by Analyzer 0 % (0-5); Neutrophil # 4.47 X10^3/uL (2.7-7.7); Neutrophil % 75.8 % (47-70); Platelet Count 218 K/mm3 (150-450); RBC Distribution Width CV 12.1 % (11.6-14.6); RBC Distribution Width SD 39.9 fl (35.1-43.9); Red Blood Count 4.88 M/mm3 (4.6-6.2); White Blood Count 5.9 K/mm3 (4.4-11.0)
[2020-09-05 07:42] LABS: Anion Gap 4 (5-15); BUN 11 mg/dL (7-18); BUN/Creat Ratio 9.5 RATIO (10-20); Chloride 103 mmol/L (98-107); Creatinine, Serum 1.16 mg/dL (0.70-1.30); EST Glomerular Filtration Rate 82 mL/min (>60); Est Glom Filt Rate - Afr Amer 99 mL/min (>60); Estimated Creatinine Clearance 91.81 ml/min; Glucose 106 mg/dL (74-106); Potassium 3.3 mmol/L (3.5-5.1); Sodium Level 137 mmol/L (136-145)
[2020-09-05 07:43] VITALS: BP 123/53; PULSE 61; RESP 23; TEMP 36.1; O2SAT 97
[2020-09-05 08:00] VITALS: BP 123/83; PULSE 61; RESP 23; TEMP 36.1; O2SAT 97
== END 2020-09-05 09:02 | disposition home or self-care (01) ==
PROVIDERS: Emergency Provider Emergency Medicine
DX: J06.9 Acute upper respiratory infection, unspecified (principal); R04.2 Hemoptysis; K21.9 Gastro-esophageal reflux disease without esophagitis; F17.210 Nicotine dependence, cigarettes, uncomplicated
CPT/HCPCS: 71275; 80048; 85025; 87426; 93005; 99284; Q9967; A4216

== ENCOUNTER 2020-09-11 22:13 | Emergency (ER) | payer SELFPAY ==
[2020-09-11 22:13] VITALS: BP 118/60; PULSE 64; RESP 18; TEMP 36.2; O2SAT 98; BMI 22.7
--- NOTE | 2020-09-11 22:31 | EDS_ITS ---
HPI History of Present Illness Chief Complaint: Cough Detail of Chief Complaint: Cough and cold sweats for 3 days Informant: patient Narrative Narrative: Patient presents to the emergency department complaint of a cough for the last 3 days. Patient at times bringing up some phlegm with blood-tinged sputum. Patient denies any fever. He denies any Covid exposures. He has not had Covid and has not had the vaccine. Patient has no medical problems. Patient denies recent travel or surgery. No history of PE or DVT. Prior similar symptoms: No PFSH PFSH Medical History (Updated 09/11/20 @ 23:[address] Maria Teresa Moreno, DO) GERD (gastroesophageal reflux disease) Allergy/AdvReac Type Severity Reaction Status Date / Time SILVER AdvReac Mild Rash Uncoded 09/11/20 22:15 Social History Smoking Status: Current every day smoker tobacco type: cigarettes ROS ROS ED Constitutional Constitutional ED: Reports systems reviewed and no addt'l complaints, except as documented; Denies body ache(s), change in weight or chills Eyes Eyes: Denies acute decrease in peripheral vision, change in vision, double vision or loss of vision ENT ENT ED: Reports none; Denies ear pain, lip swelling, loss taste/smell, neck pain, otalgia or sore throat Cardiovascular Cardiovascular: Reports none; Denies abdominal pain, chest pain with activity, leg edema, lightheadedness, palpitations, rapid heart rate or syncope Respiratory/Chest Respiratory/Chest: Reports none, cough and sputum; Denies change in mental status, dry cough, dyspnea, hemoptysis, shortness of breath at rest or shortness of breath with exertion Gastrointestinal Gastrointestinal: Reports none; Denies abdominal pain, change in stool character, diarrhea, hematemesis, hematochezia, melena, rectal bleeding or vomiting Genitourinary Genitourinary ED: Reports none; Denies abdominal discomfort, anuria, dysuria, genital pain or polyuria Musculoskeletal Musculoskeletal: Reports none; Denies arthralgias, back pain, difficulty walking, extremity pain, muscle weakness or myalgias Integumentary Reports none; Denies abscess or rash Neurologic Neurologic: Reports none; Denies abnormal gait, confusion, focal weakness, frequent falls, headache(s), loss of vision, numbness, paresthesias, radicular pain, vertigo or weakness Psychiatric Psychiatric: Reports systems reviewed and no addt'l complaints, except as documented and none; Denies behavioral changes, confusion, difficulty concentrating, hallucinations, suicidal ideation, tactile hallucinations or visual hallucinations Endocrine Endocrinology: Denies none, cold intolerance, excessive sweating, fatigue or heat intolerance Hematologic/Lymphatic Hematologic/Lymphatic: Reports none; Denies anemia, easy bleeding or easy bruising Allergic/Immunologic Allergic/Immunologic ED: Denies as per HPI, none, lip swelling, mouth swelling, throat swelling, tongue swelling or hives EXAM Physical Exam Const Vital Signs: 09/11/20 22:13 09/11/20 22:43 Temperature 97.1 F L 98.1 F Temperature Source Temporal Temporal Pulse Rate 64 70 Respiratory Rate 18 16 Blood Pressure 118/60 118/71 Blood Pressure Mean 79 86 Pulse Ox 98 98 Oxygen Delivery Method Room Air Room Air Positive well nourished and well developed General Appearance ED: well developed and NAD HEENT Reports TM's clear and moist mucous membranes normocephalic and atraumatic; Negative for trauma or tenderness Tympanic Membrane ED: Yes TM's clear Eyes PERRL and EOMs intact bilaterally General Eye ED: Negative for pale conjunctiva or scleral icterus Neck no lymphadenopathy, supple and no JVD General: Negative for tenderness Chest Wall inspection of chest normal and palpation of chest normal Chest: Negative for tenderness Resp normal respiratory effort and clear to auscultation bilaterally Effort and Inspection: Negative for respiratory distress or pain with movement Auscultation: Negative for rhonchi, wheezes or diminished lung sounds Cardio regular rate, regular rhythm, S1 normal heart sound, S2 normal heart sound and no murmurs Peripheral Pulses: pulses 2+ throughout GI normal to inspection, nondistended, normoactive bowel sounds, soft to palpation, non-tender, non-distended and no masses Back/Spine no CVA tenderness and no thoracic nor lumbar tenderness Extremity normal to inspection General Extremety ED: Negative for edema General Extremity: Negative for edema Neuro oriented x3, CN's II-XII intact bilaterally, no sensory deficits noted and gait normal Sensorium / Orientation: awake, alert, oriented to person, oriented to place and oriented to time Motor Exam: strength 5/5 throughout and strength abnormal Psych mental status grossly normal Skin no rashes or lesions noted and no wounds MDM MDM MDM Narrative Medical decision making narrative: I suspect patient may have a viral URI. There is no indication for antibiotics at this time. Patient will be referred to primary care physician internal control specialist for no doc for follow-up within next 5 to 7 days. He is advised to return if worsening shortness of breath, fever, or condition should worsen anyway. Radiography Chest X-Ray - ED: 2 View and No Infiltrates Diagnostic Testing: Radiology Impression Chest X-Ray 09/11/20 22:49 IMPRESSION: Normal x-ray examination of the chest. Electronically Signed: Yifan Zaldivar DO at 23:11 EDT Tel , Service support , 2 view chest x-ray obtained interpreted by myself as no acute disease process. Radiologist in agreement. Discharge Plan Triage Chief Complaint: Cough Other Complaint: General Illness ED Provider: Maria Teresa Moreno Dx/Rx/DC Orders Clinical Impression: Viral URI Instructions: ED URI, Viral, No Abx (Adult) Primary Care Provider: Care Physician,No Primary Referrals: Remigio Fischer MD [NON-STAFF] - 3-5 Days Care Physician,No Primary [Primary Care Provider] - Disposition Disposition: Home, Self Care
[2020-09-11 22:43] VITALS: BP 118/70; BP 118/71; PULSE 70; PULSE 74; RESP 16; RESP 17; TEMP 36.7; O2SAT 98
--- NOTE | 2020-09-11 22:49 | RAD_ITS ---
STUDY: X-RAY CHEST REASON FOR EXAM: Male, 25 years old. cough TECHNIQUE: PA and lateral views of the chest. COMPARISON: 08/20/2020 FINDINGS: The lungs are clear and expanded. There is no demonstrated pleural abnormality. Normal size heart. Normal mediastinum and saloni. Normal visualized pulmonary arteries. Normal visualized aortic arch and descending thoracic aorta. Normal visualized thoracic spine. Normal visualized ribs, clavicles, and shoulders. There is no demonstrated abnormality of the visualized soft tissue structures of the upper abdomen. RAD/Chest PA and Lateral IMPRESSION: Normal x-ray examination of the chest. Electronically Signed: Yifna Zaldivar DO at 23:11 EDT Tel , Service support ,
== END 2020-09-11 23:46 | disposition home or self-care (01) ==
PROVIDERS: Emergency Provider Emergency Medicine
DX: J06.9 Acute upper respiratory infection, unspecified (principal); K21.9 Gastro-esophageal reflux disease without esophagitis; F17.210 Nicotine dependence, cigarettes, uncomplicated
CPT/HCPCS: 71046; 87426; 99282

== ENCOUNTER 2020-09-17 04:00 | Emergency (ER) | payer SELFPAY ==
[2020-09-17 04:01] VITALS: BP 122/60; PULSE 88; RESP 16; TEMP 36.6; O2SAT 98; BMI 24.0
--- NOTE | 2020-09-17 04:02 | EX.ED.DYSGE1 ---
HPI History of Present Illness Chief Complaint: General Illness Informant: patient Narrative Narrative: 25-year-old male presents the emergency department for the evaluation of hemoptysis. This is the patient's fourth ED visit in a month for this. He states that he has coughing fits and will bring up phlegm that is sometimes black sometimes yellow and sometimes blood-tinged. He is not had any fevers. He has had an extensive work-up including CTA of the chest and chest x-rays. He is a half a pack a day smoker. He works at a metal shop. Patient notes nasal congestion but no drainage. His cough is worse in the morning. [facility] Medical History GERD (gastroesophageal reflux disease) Home Medications albuterol sulfate [Ventolin HFA] 2 puff INHALATION Q4H PRN PRN #1 inhaler 09/17/20 [Rx Last Taken Unknown] azithromycin [Zithromax Z-Jarred] See Rx Instructions .ROUTE .COMPLEX #6 tab 09/17/20 [Rx Last Taken Unknown] Allergy/AdvReac Type Severity Reaction Status Date / Time SILVER AdvReac Mild Rash Uncoded 09/11/20 22:15 Social History (Updated 09/17/20 @ 04:[address] Enoch Nazario, ) Smoking Status: Current every day smoker tobacco type: cigarettes substance use type: does not use ROS ROS ED Constitutional Constitutional ED: Denies chills or weight loss Eyes Eyes: Denies change in vision or diplopia ENT ENT ED: Denies ear pain, rhinorrhea or sore throat Cardiovascular Cardiovascular: Denies chest pain, orthopnea, palpitations or racing heartbeat Respiratory/Chest Respiratory/Chest: Reports cough, sputum and other Details: Hemoptysis ; Denies dyspnea or orthopnea Gastrointestinal Gastrointestinal: Denies abdominal pain, diarrhea, nausea or vomiting Genitourinary Genitourinary ED: Denies dysuria, hematuria or urinary frequency Musculoskeletal Musculoskeletal: Denies arthralgias or myalgias Integumentary Denies abscess or rash Neurologic Neurologic: Denies headache(s) or weakness Psychiatric Psychiatric: Denies anxiety, depression, suicidal ideation or suicidal thoughts Endocrine Endocrinology: Denies polydipsia, polyphagia or polyuria Allergic/Immunologic Allergic/Immunologic ED: Denies mouth swelling, tongue swelling or urticaria EXAM Physical Exam Const Vital Signs: 09/17/20 04:01 09/17/20 04:10 Temperature 97.9 F 97.4 F L Temperature Source Temporal Temporal Pulse Rate 88 74 Respiratory Rate 16 17 Blood Pressure 122/60 H 122/60 H Blood Pressure Mean 80 80 Pulse Ox 98 98 Oxygen Delivery Method Room Air Room Air Positive well nourished and well developed General Appearance ED: well developed HEENT Reports normocephalic, head/scalp atraumatic and moist mucous membranes Eyes PERRL and EOMs intact bilaterally Neck no lymphadenopathy, supple and no JVD Resp normal respiratory effort and clear to auscultation bilaterally Cardio regular rate, regular rhythm and no murmurs GI normal to inspection, nondistended, normoactive bowel sounds and non-tender Palpation: soft Back/Spine no CVA tenderness and normal ROM Extremity normal to inspection General Extremety ED: Negative for edema General Extremity: Negative for edema Neuro oriented x3 and CN's II-XII intact bilaterally Sensorium / Orientation: alert Motor Exam: strength 5/5 throughout Psych mental status grossly normal Mood & Affect: Negative for depressed or tearful Skin no rashes or lesions noted and no wounds MDM MDM MDM Narrative Medical decision making narrative: Patient has a benign exam. I suspect his morning cough is probably related to his longstanding tobacco use. The hemoptysis which she has showed me a picture of his mild and occurs during these coughing fits. He has already had a CTA to rule out mass. Patient will try to refrain from smoking. All right and albuterol MDI and as this is been present for 1 month and he has not yet been on antibiotic I think it is reasonable to trial one. If he is not improving I can have him follow-up with pulmonology or primary care. Patient is comfortable with this plan. Discharge Plan Triage Chief Complaint: General Illness ED Provider: Enoch Nazario Dx/Rx/DC Orders Clinical Impression: Cough with hemoptysis, Bronchitis, Tobacco use Instructions: ED Hemoptysis Prescriptions: New albuterol sulfate [Ventolin HFA] 1 INHALER inhaler 2 puff inhalation Q4H PRN PRN (Reason: Wheezing) Qty: 1 RF: 0 azithromycin [Zithromax Z-Jarred] 250 mg tablet See Rx Instructions .ROUTE .COMPLEX Qty: 6 RF: 0 Primary Care Provider: Care Physician,No Primary Referrals: Reagan,River, MD [STAFF PHYSICIAN] - As Needed (For pulmonology) Felecia Cosby MD [STAFF PHYSICIAN] - As Needed (For primary care) Care Physician,No Primary [Primary Care Provider] - Disposition Disposition: Home, Self Care
[2020-09-17 04:10] VITALS: BP 122/60; PULSE 74; RESP 17; TEMP 36.3; O2SAT 98
== END 2020-09-17 04:33 | disposition home or self-care (01) ==
PROVIDERS: Emergency Provider Emergency Medicine
DX: J40 Bronchitis, not specified as acute or chronic (principal); K21.9 Gastro-esophageal reflux disease without esophagitis; F17.210 Nicotine dependence, cigarettes, uncomplicated
CPT/HCPCS: 99282

== ENCOUNTER 2021-01-02 09:10 | Emergency (ER) | payer SELFPAY ==
[2021-01-02 09:10] VITALS: BP 121/64; PULSE 84; RESP 16; TEMP 35.7; O2SAT 100; BMI 22.6
--- NOTE | 2021-01-02 09:28 | EDS_ITS ---
HPI History of Present Illness Chief Complaint: Headache Informant: patient Onset/Context/Timing Onset: Days (3) Context: Gradual Timing: Continuous Quality -Headache: Positive for Similar Prior Headaches and Throbbing Location: bifrontal Current Severity: Severe Maximum Severity: Severe Worsened by: light and sound Relieved by: nothing. tried ibuprofen and acetaminophen. Associated Symptoms/Injury Associated Symptoms: Positive for Nausea and Photophobia; Negative for Fever, Vomiting, Sore Throat, Sinus Pressure, Numbness, Tingling, Preceding Aura, Visual Changes, Blurred Vision and Visual Loss Injury - LAIRD: Negative for Direct Trauma and Fall Narrative Narrative: Patient presenting with bifrontal headache for the last 3 days, also started getting a minor nonproductive cough 1 day into it or so. No shortness of breath or chest pain. No fevers or chills or myalgias. Has not been vaccinated against Covid, and no contact with anybody that he knows of with it. States he has had some nasal congestion but can breathe fine through his nose but does not have major facial/sinus pressure, just frontal pain. Some photophobia but no vision disturbance or loss. No peripheral neurologic symptoms. Last took acetaminophen this morning, no Advil today. States he has had headaches like these before, they come on randomly, but has not gone to the doctor for them and does not get them that often. Prior similar symptoms: Yes PFSH PENDING SALE TO [facility] Medical History GERD (gastroesophageal reflux disease) Home Medications albuterol sulfate [Ventolin HFA] 2 puff INHALATION Q4H PRN PRN #1 inhaler 09/17/20 [Rx Last Taken Unknown] azithromycin [Zithromax Z-Jarred] See Rx Instructions .ROUTE .COMPLEX #6 tab 09/17/20 [Rx Last Taken Unknown] metoclopramide HCl [Reglan] 10 mg PO Q6H PRN #14 tab 01/02/21 [Rx Last Taken Unknown] Allergy/AdvReac Type Severity Reaction Status Date / Time SILVER AdvReac Mild Rash Uncoded 01/02/21 09:12 Social History Smoking Status: Current every day smoker tobacco type: cigarettes substance use type: does not use ROS ROS ED Constitutional Constitutional ED: Denies chills or fever(s) Eyes Eyes: Reports photophobia; Denies blurry vision or diplopia ENT ENT ED: Reports nasal congestion; Denies dental pain, ear pain, loss taste/smell or sore throat Cardiovascular Cardiovascular: Denies chest pain or palpitations Respiratory/Chest Respiratory/Chest: Reports cough; Denies dyspnea Gastrointestinal Gastrointestinal: Reports nausea; Denies abdominal pain, diarrhea or vomiting Genitourinary Genitourinary ED: Denies dysuria or urinary frequency Musculoskeletal Musculoskeletal: Denies back pain or myalgias Integumentary Denies abscess or rash Neurologic Neurologic: Reports headache(s); Denies paresthesias or weakness EXAM Physical Exam Const Vital Signs: 01/02/21 09:10 Temperature 96.3 F L Temperature Source Temporal Pulse Rate 84 Respiratory Rate 16 Blood Pressure 121/64 H Blood Pressure Mean 83 Pulse Ox 100 Oxygen Delivery Method Room Air Positive well nourished, well developed, alert and oriented x3 General Appearance ED: well developed and NAD HEENT Reports normocephalic and moist mucous membranes atraumatic Eyes PERRL, EOMs intact bilaterally and conjunctivae normal Eyes Narrative: no significant photophobia Neck no lymphadenopathy, supple and no meningeal signs Resp normal respiratory effort and clear to auscultation bilaterally GI non-tender and non-distended Palpation: soft Extremity normal to inspection and full ROM Neuro oriented x3 and CN's II-XII intact bilaterally Sensorium / Orientation: awake and alert Speech: speech normal Gait (Neuro): normal gait Motor Exam: strength 5/5 throughout Psych mental status grossly normal Skin Lesions: no lesions Rashes: no rashes MDM MDM MDM Narrative Medical decision making narrative: I believe this is a primary headache syndrome. I did testing for Covid given the cough it is negative. I offered him analgesics to help his symptoms including IM Toradol and Reglan, he refused the injections because he is afraid of needles. Therefore he was given an oral Reglan as well as a prescription and he requested a work note which he was also provided for today. Follow-up advised. Discharge Plan Triage Chief Complaint: Headache ED Provider: Tejas Guadarrama Dx/Rx/DC Orders Clinical Impression: Acute headache Instructions: Understanding Headache Pain Prescriptions: New metoclopramide HCl [Reglan] 10 mg tablet 10 mg PO Q6H PRN (Reason: nausea and vomiting or headache) Qty: 14 RF: 0 No Action albuterol sulfate [Ventolin HFA] 1 INHALER inhaler 2 puff inhalation Q4H PRN PRN (Reason: Wheezing) Qty: 1 RF: 0 azithromycin [Zithromax Z-Jarred] 250 mg tablet See Rx Instructions .ROUTE .COMPLEX Qty: 6 RF: 0 Stand Alone Forms: ED Work / School Excuse Primary Care Provider: Care Physician,No Primary Referrals: Patricia Sánchez [NON-STAFF] - 3-5 Days if not improving Care Physician,No Primary [Primary Care Provider] - Disposition Disposition: Home, Self Care
[2021-01-02] MEDS: Metoclopramide 10 MG Tablet PO (10:26)
[2021-01-02 10:34] VITALS: BP 117/73; PULSE 82
== END 2021-01-02 10:34 | disposition home or self-care (01) ==
PROVIDERS: Emergency Provider Emergency Medicine
DX: R51.9 Headache, unspecified (principal); H53.149 Visual discomfort, unspecified; R11.0 Nausea; K21.9 Gastro-esophageal reflux disease without esophagitis; F17.210 Nicotine dependence, cigarettes, uncomplicated
CPT/HCPCS: 87426; 99283

== ENCOUNTER 2021-01-14 09:25 | Emergency (ER) | payer SELFPAY ==
[2021-01-14 09:26] VITALS: BP 124/76; PULSE 98; RESP 18; TEMP 36.6; O2SAT 100; BMI 23.5
--- NOTE | 2021-01-14 09:40 | RAD_ITS ---
STUDY: X-RAY CHEST REASON FOR EXAM: Male, 26 years old. Cough and chest congestion. TECHNIQUE: Single AP portable view of the chest. COMPARISON: None. FINDINGS: Comparison is made with prior study dated 09/11/2020. The lungs are clear and expanded. There is no demonstrated pleural abnormality. Normal size heart. Normal mediastinum and saloni. Normal visualized pulmonary arteries. Normal visualized aortic arch and descending thoracic aorta. Normal visualized thoracic spine. Normal visualized ribs, clavicles, and shoulders. There is no demonstrated abnormality of the visualized soft tissue structures of the upper abdomen. RAD/Chest 1 View (Portable) IMPRESSION: Normal x-ray examination of the chest. Electronically Signed: Joe Nina MD at 10:15 EST , Service support ,
--- NOTE | 2021-01-14 09:42 | EDS_ITS ---
HPI HPI - URI History of Present Illness Chief Complaint: Cough Narrative Narrative: Patient is a 26-year-old male, smoker, who is down to half a pack a day from 2 packs a day. He presents with 3-day history of cough with yellow sputum production. He denies any fevers or chills. No myalgias. No rhinorrhea or sore throat. No loss of taste or smell. He states he has a hard time breathing at times, especially when he wakes up in the morning. No other exace rbating or alleviating factors. ROS ROS ED ROS Narrative Constitutional: No fever, no chills. HEENT: No sore throat. No neck pain. No loss of vision. No rhinorrhea. No loss of taste or smell. Cardiovascular: No chest pain. No palpitations. No pedal edema. Respiratory: Positive productive cough of yellow to green sputum, positive shortness of breath, more in the morning. Abdominal: No abdominal pain. No nausea. No vomiting. Genitourinary: No dysuria. No hematuria. Musculoskeletal: No myalgias. No arthralgias. Neurologic: No headaches. No dizziness. No lightheadedness. Skin: No rash. No change in color. Psychiatric: No depression. No anxiety. [facility] Medical History GERD (gastroesophageal reflux disease) Home Medications albuterol sulfate [Ventolin HFA] 2 puff INHALATION Q4H PRN PRN #1 inhaler 09/17/20 [Rx Last Taken Unknown] azithromycin [Zithromax Z-Jarred] See Rx Instructions .ROUTE .COMPLEX #6 tab 09/17/20 [Rx Last Taken Unknown] metoclopramide HCl [Reglan] 10 mg PO Q6H PRN #14 tab 01/02/21 [Rx Last Taken Unknown] albuterol sulfate [Ventolin HFA] 1 - 2 puff INHALATION Q4H PRN PRN #1 device 01/14/21 [Rx Last Taken Unknown] Allergy/AdvReac Type Severity Reaction Status Date / Time SILVER AdvReac Mild Rash Uncoded 01/14/21 09:28 Social History Smoking Status: Current every day smoker tobacco type: cigarettes substance use type: does not use EXAM Physical Exam Narrative Exam Narrative: Afebrile. Vital signs noted. HEENT: Normocephalic. Atraumatic. PERRL, EOMI. Neck soft and supple. No point tenderness or step off. Cardiovascular: Regular rate and rhythm. No murmurs, rubs, or gallops appreciated. Respiratory: No tachypnea. Lungs clear to auscultation bilaterally. Minimally prolonged expiratory phase. Gastrointestinal: Abdomen soft, nontender, with normoactive bowel sounds. No rebound or guarding. Neurological: Awake. Alert. Nonfocal, nonlateralizing. Skin: No rash. Normal color. No pallor. Musculoskeletal: No pedal edema. Full range of motion extremities. Const Vital Signs: 01/14/21 09:26 01/14/21 09:53 Temperature 98 F Temperature Source Temporal Pulse Rate 98 Respiratory Rate 18 Respiratory Effort Normal Non-Labored Respiratory Depth Normal Respiratory Pattern Normal Blood Pressure 124/76 H Blood Pressure Mean 92 Pulse Ox 100 Oxygen Delivery Method Room Air Room Air MDM MDM MDM Narrative Medical decision making narrative: His pulse ox is 100% on room air. Smoking cessation was discussed. Covid swab was obtained along with influenza swab and chest x-ray in 1 view. Son is his chest x-ray is clear, I do not feel antibiotics are indicated. However, he will be given a prescription for an albuterol inhaler, which she has used previously. Chest x-ray returns as read by radiology as no acute process, no infiltrate. Once again, do not feel antibiotics are indicated. Influenza swab and Covid swab are both negative. At this point in time, I feel he be discharged safely home to follow-up with a primary care provider. He was told was bronchitis that he may cough for weeks. He will take [id number] medications as needed as an antitussive. Disposition is discharged home in stable condition. Return instructions to the emergency department were reviewed. Lab Data Attestation: I reviewed the patient's lab results. Radiography Diagnostic Testing: Clinical Impression(s) from Imaging Studies Chest X-Ray 01/14/21 09:40 IMPRESSION: Normal x-ray examination of the chest. Electronically Signed: Joe Nina MD at 10:15 EST , Service support , Discharge Plan Triage Chief Complaint: Cough ED Provider: Bernabe Acharya Dx/Rx/DC Orders Clinical Impression: Bronchitis, Tobacco use Instructions: ED Bronchitis, No Antibiotic (Adult) Prescriptions: New albuterol sulfate [Ventolin HFA] 90 mcg/actuation HFA aerosol inhaler 1 - 2 puff inhalation Q4H PRN PRN (Reason: Wheezing) Qty: 1 RF: 0 No Action albuterol sulfate [Ventolin HFA] 1 INHALER inhaler 2 puff inhalation Q4H PRN PRN (Reason: Wheezing) Qty: 1 RF: 0 azithromycin [Zithromax Z-Jarred] 250 mg tablet See Rx Instructions .ROUTE .COMPLEX Qty: 6 RF: 0 metoclopramide HCl [Reglan] 10 mg tablet 10 mg PO Q6H PRN (Reason: nausea and vomiting or headache) Qty: 14 RF: 0 Stand Alone Forms: ED Work / School Excuse Primary Care Provider: Care Physician,No Primary Referrals: Care Physician,No Primary [Primary Care Provider] - Clinic,NOW [NON-STAFF] - 01/21/21 Disposition Disposition: Home, Self Care
[2021-01-14 09:53] VITALS: O2SAT 98
[2021-01-14 11:13] VITALS: PULSE 94; RESP 17; O2SAT 100
== END 2021-01-14 11:13 | disposition home or self-care (01) ==
PROVIDERS: Emergency Provider Emergency Medicine
DX: J40 Bronchitis, not specified as acute or chronic (principal); K21.9 Gastro-esophageal reflux disease without esophagitis; F17.210 Nicotine dependence, cigarettes, uncomplicated
CPT/HCPCS: 71045; 87426; 87804; 99282

== ENCOUNTER 2021-03-11 06:51 | Emergency (ER) | payer SELFPAY ==
[2021-03-11 06:54] VITALS: BP 138/64; PULSE 88; RESP 20; TEMP 36.9; O2SAT 99; BMI 21.9
--- NOTE | 2021-03-11 07:06 | EX.ED.DYSGE1 ---
HPI History of Present Illness Chief Complaint: General Illness Informant: patient Onset/Context/Timing Onset: Days (4) Context: Gradual Onset Timing: Continuous Worsened by: Nothing Relieved by: Nothing Narrative Narrative: Patient presents with nausea and vomiting and cough that has been getting worse over the last 4 days. Patient states he got to work today and had an episode of vomiting. Patient states his employer saw him vomit and told him to come to the emergency department for Covid test. 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 Patient denies any fevers or chills. Patient does admit to some rhinorrhea. Patient also admits to some diarrhea but denies any melena or hematochezia. PFSH PFSH Medical History GERD (gastroesophageal reflux disease) Medical History no medical history Home Medications albuterol sulfate [Ventolin HFA] 2 puff INHALATION Q4H PRN PRN #1 inhaler 09/17/20 [Rx Last Taken Unknown] Allergy/AdvReac Type Severity Reaction Status Date / Time SILVER AdvReac Mild Rash Uncoded 03/11/21 06:54 Surgical History no surgical history no surgical history Social History Smoking Status: Current every day smoker tobacco type: cigarettes substance use type: does not use ROS ROS ED Constitutional Constitutional ED: Denies chills or fever(s) Eyes Eyes: Denies blurry vision or change in vision ENT ENT ED: Reports rhinorrhea; Denies sore throat Cardiovascular Cardiovascular: Denies chest pain or palpitations Respiratory/Chest Respiratory/Chest: Reports cough and sputum; Denies dyspnea Gastrointestinal Gastrointestinal: Reports diarrhea, nausea and vomiting; Denies melena Genitourinary Genitourinary ED: Denies dysuria or hematuria Musculoskeletal Musculoskeletal: Denies back pain or neck pain Integumentary Denies abscess or rash Neurologic Neurologic: Denies headache(s) or weakness Allergic/Immunologic Allergic/Immunologic ED: Denies mouth swelling or urticaria EXAM Physical Exam Const Vital Signs: 03/11/21 06:54 03/11/21 06:57 Temperature 98.5 F Temperature Source Oral Pulse Rate 88 Respiratory Rate 20 H Respiratory Effort Normal Respiratory Pattern Normal Blood Pressure 138/64 H Blood Pressure Mean 88 Pulse Ox 99 Oxygen Delivery Method Room Air Positive well nourished and well developed General Appearance ED: well developed HEENT Reports moist mucous membranes Neck supple and no JVD Resp normal respiratory effort and clear to auscultation bilaterally Cardio regular rate, regular rhythm and no murmurs GI normal to inspection, nondistended, normoactive bowel sounds and non-tender Palpation: soft Extremity normal to inspection Neuro oriented x3, CN's II-XII intact bilaterally and no sensory deficits noted Sensorium / Orientation: alert Motor Exam: strength 5/5 throughout Psych mental status grossly normal Skin no rashes or lesions noted MDM MDM MDM Narrative Medical decision making narrative: COVID-19 PCR test was ordered. This is a send out test. Patient will get the results on his phone. Patient was given a note for work. Patient was instructed to take Tylenol or ibuprofen as needed for any aches or fevers. Patient was instructed to drink fluids. Patient was instructed to follow-up with his primary care physician in 5 to 7 days. Patient understood and was agreeable with the plan. All questions were answered. Discharge Plan Triage Chief Complaint: General Illness ED Provider: Manuel White Dx/Rx/DC Orders Clinical Impression: Viral illness Instructions: Coronavirus Disease 2019 (COVID-19): Overview, ED Viral Syndrome (Adult) Prescriptions: No Action albuterol sulfate [Ventolin HFA] 1 INHALER inhaler 2 puff inhalation Q4H PRN PRN (Reason: Wheezing) Qty: 1 RF: 0 Stand Alone Forms: ED Work / School Excuse Primary Care Provider: Care Physician,No Primary Referrals: Su Gonzalez MD [STAFF PHYSICIAN] - 5-7 Days Care Physician,No Primary [Primary Care Provider] - Disposition Disposition: Home, Self Care
== END 2021-03-11 07:25 | disposition home or self-care (01) ==
LOC: ED 07:20
PROVIDERS: Emergency Provider Emergency Medicine; Visit Provider Emergency Medicine
DX: B34.9 Viral infection, unspecified (principal); R11.2 Nausea with vomiting, unspecified; R19.7 Diarrhea, unspecified; F17.210 Nicotine dependence, cigarettes, uncomplicated; J34.89 Other specified disorders of nose and nasal sinuses
CPT/HCPCS: 87635; 99282; U0003; U0005

== ENCOUNTER 2021-03-26 06:35 | Emergency (ER) | payer SELFPAY ==
[2021-03-26 06:37] VITALS: BP 148/69; PULSE 102; RESP 18; TEMP 36.3; O2SAT 100; BMI 23.5
[2021-03-26 06:39] VITALS: O2SAT 100
--- NOTE | 2021-03-26 06:59 | EX.ED.DYSGE1 ---
HPI History of Present Illness Chief Complaint: Cough Informant: patient Narrative Narrative: This patient presents with 2 complaints. First complaint is that he has been coughing for about 2 weeks. He has not had fevers chills myalgias nausea or vomiting. He has had nasal congestion. He states he coughs but brings up no sputum. But when he snorts his nose he can get a little bit of blood in that. He is not coughing up blood. He has no chest pain. He is not actually dyspneic. He does have occasional wheezing. He has used inhalers in the past but does not have one now. He is a smoker. 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 He does not know if he is exposed to COVID but is wondering if he has it. His second complaint is that he has some swelling and discomfort of the distal tip of his right long finger. It is mostly around the nail on the lateral aspect. He denies any injury. He has no puncture. He has had no trauma to it. He has no pain with motion of the finger but he does have pain with squeezing of the tip. [facility] Medical History GERD (gastroesophageal reflux disease) Medical History no medical history Home Medications albuterol sulfate [Ventolin HFA] 2 puff INHALATION Q4H PRN PRN #1 inhaler 09/17/20 [Rx Last Taken Unknown] doxycycline monohydrate 100 mg PO BID #20 cap 03/26/21 [Rx Last Taken Unknown] Allergy/AdvReac Type Severity Reaction Status Date / Time SILVER AdvReac Mild Rash Uncoded 03/26/21 06:36 Surgical History no surgical history Social History Smoking Status: Current every day smoker tobacco type: cigarettes substance use type: does not use ROS ROS ED Constitutional Constitutional ED: Denies chills or fever(s) Eyes Eyes: Denies blurry vision ENT ENT ED: Reports rhinorrhea and other Details: See history of present illness. ; Denies ear pain or sore throat Cardiovascular Cardiovascular: Denies chest pain, orthopnea or palpitations Respiratory/Chest Respiratory/Chest: Reports cough; Denies dyspnea, dyspnea on exertion, orthopnea or sputum Gastrointestinal Gastrointestinal: Denies diarrhea, nausea or vomiting Genitourinary Genitourinary ED: Denies dysuria Musculoskeletal Musculoskeletal: Reports other Details: Sore finger as in history of present illness ; Denies arthralgias or myalgias Integumentary Denies rash Neurologic Neurologic: Denies headache(s) Endocrine Endocrinology: Denies polydipsia or polyuria Allergic/Immunologic Allergic/Immunologic ED: Denies mouth swelling or urticaria EXAM Physical Exam Const Vital Signs: 03/26/21 06:37 03/26/21 06:39 Temperature 97.3 F L Temperature Source Oral Pulse Rate 102 H Respiratory Rate 18 Respiratory Effort Normal Respiratory Depth Normal Respiratory Pattern Normal Blood Pressure 148/69 H Blood Pressure Mean 95 Pulse Ox 100 Oxygen Delivery Method Room Air Room Air Positive well nourished and well developed General Appearance ED: well developed and NAD; Negative for cyanotic, diaphoretic or pallor HEENT Reports moist mucous membranes HEENT Narrative: Oropharynx is clear. There is a small amount of saliva and blood in the posterior pharynx. It is not draining it is just a very small coating. Tonsils actually look normal. Nose shows some inflammatory changes but no active bleeding. No purulent drainage is noted. No sinus tenderness. Eyes PERRL Neck no lymphadenopathy, supple and no JVD Resp normal respiratory effort and clear to auscultation bilaterally Resp Narrative: Patient takes good deep breaths. There is no discomfort whatsoever. He does have a slight end expiratory wheeze. No rhonchi or rales are heard. No tenderness. Effort and Inspection: Negative for pain with movement Auscultation: wheezes; Negative for rales or rhonchi Cardio regular rate, regular rhythm and no murmurs GI normal to inspection, nondistended, normoactive bowel sounds and non-tender Palpation: soft Back/Spine no CVA tenderness Extremity Extremity Narrative: There is some erythema to the distal lateral dorsal aspect of his right long finger. There is not an area of purulence that I can drain. The tuft is not tender or firm. This is not a felon at this point. He also has negative Knavel's signs. He has excellent range of motion and no tenderness along the tendon. Neuro oriented x3 Sensorium / Orientation: alert Psych mental status grossly normal Skin no rashes or lesions noted General Skin Exam: Negative for jaundice or pallor MDM MDM MDM Narrative Medical decision making narrative: I discussed options with the patient. He is not bringing up any sputum. He is not short of breath. He is coughing and has some wheezing. He is also a smoker and in a very anil dirty environment. His history is more consistent with a bronchitis. I will write for albuterol. Patient also has some nasal discharge and blood. But this is coming from his nose and on his lungs. I do not think this represents pulmonary embolus. I do not think he needs D-dimer or CTA. No active bleeding is seen. I discussed options regarding the finger with the patient. I do not think his findings justify a felon. I do not think this requires incision of the distal finger. There is erythema and swelling behind the nail but there is not a fluctuant spot that is easily drained. We will use warm compresses and massage. This is only been going on for about 1 day now. I will get him started on doxycycline. This should cover both most infections around the nail of his finger as well as any pulmonary process. I will send off a COVID. However, the patient is not at all hypoxic. I do not think he has any criteria for monoclonal antibody therapy. Even if his COVID is positive we will continue therapy as planned but he will have to quarantine at that point. Patient came out stating he that he cannot stay any longer. He will wait for the COVID testing on his phone. We will let him go at this time. Discharge Plan Triage Chief Complaint: Cough ED Provider: Carmine Mg Dx/Rx/DC Orders Clinical Impression: Bronchitis, Viral URI, Tobacco use, Paronychia of right middle finger, Exposure to 2019-nCoV Instructions: ED Bronchitis with Wheezing (Adult), ED Paronychia of the Finger or Toe Prescriptions: New doxycycline monohydrate 100 MG capsule 100 mg PO BID Qty: 20 RF: 0 No Action albuterol sulfate [Ventolin HFA] 1 INHALER inhaler 2 puff inhalation Q4H PRN PRN (Reason: Wheezing) Qty: 1 RF: 0 Primary Care Provider: Care Physician,No Primary Referrals: Kelly Guardado MD [STAFF PHYSICIAN] - 3-5 Days if not improving Care Physician,No Primary [Primary Care Provider] - Disposition Disposition: Home, Self Care
[2021-03-26] MEDS: Doxycycline 100 MG CAPSULE PO (07:07)
== END 2021-03-26 07:22 | disposition home or self-care (01) ==
PROVIDERS: Emergency Provider Emergency Medicine; Visit Provider Emergency Medicine
DX: J40 Bronchitis, not specified as acute or chronic (principal); F17.210 Nicotine dependence, cigarettes, uncomplicated; L03.011 Cellulitis of right finger; Z20.822 Contact with and (suspected) exposure to COVID-19
CPT/HCPCS: 87426; 99283

== ENCOUNTER 2021-05-14 09:51 | Emergency (ER) | payer SELFPAY ==
[2021-05-14 09:52] VITALS: BP 128/62; PULSE 103; RESP 16; TEMP 36.3; O2SAT 100; BMI 22.8
--- NOTE | 2021-05-14 10:13 | RAD_ITS ---
STUDY: X-RAY CHEST REASON FOR EXAM: Male, 26 years old. Cough TECHNIQUE: Single AP portable view of the chest. COMPARISON: Comparison is made with prior study dated 01/14/2021. FINDINGS: The lungs are clear and expanded. There is no demonstrated pleural abnormality. Normal size heart. Normal mediastinum and saloni. Normal visualized pulmonary arteries. Normal visualized aortic arch and descending thoracic aorta. Normal visualized thoracic spine. Normal visualized ribs, clavicles, and shoulders. There is no demonstrated abnormality of the visualized soft tissue structures of the upper abdomen. RAD/Chest 1 View (Portable) IMPRESSION: Normal x-ray examination of the chest. Electronically Signed: Joe Nina MD at 10:34 EST ,
--- NOTE | 2021-05-14 10:14 | EDS_ITS ---
HPI History of Present Illness Chief Complaint: Cold Sx Detail of Chief Complaint: Cough and congestion Informant: patient Narrative Narrative: Patient presents to the emergency department chief complaint of cough and congestion that started 3 weeks ago. Patient states cough is nonproductive. Has been using decongestants at home without relief. Patient denies COVID exposures. He has not had the COVID vaccine. Patient tells me he was tested for Covid 2 months ago and was negative. PFSH PFS Medical History GERD (gastroesophageal reflux disease) Medical History no medical history Home Medications albuterol sulfate [Ventolin HFA] 2 puff INHALATION Q4H PRN PRN #1 inhaler 09/17/20 [Rx Last Taken Unknown] doxycycline monohydrate 100 mg PO BID #20 cap 03/26/21 [Rx Last Taken Unknown] azithromycin [Zithromax Z-Jarred] 250 mg PO DAILY 5 Days #6 tab 05/14/21 [Rx Last Taken Unknown] Allergy/AdvReac Type Severity Reaction Status Date / Time SILVER AdvReac Mild Rash Uncoded 05/14/21 09:51 Surgical History no surgical history Social History Smoking Status: Current every day smoker tobacco type: cigarettes substance use type: does not use ROS ROS ED Constitutional Constitutional ED: Reports systems reviewed and no addt'l complaints, except as documented; Denies body ache(s), change in weight or chills Eyes Eyes: Denies acute decrease in peripheral vision, change in vision, double vision or loss of vision ENT ENT ED: Reports none and other Details: Nasal congestion ; Denies ear pain, lip swelling, loss taste/smell, neck pain, otalgia or sore throat Cardiovascular Cardiovascular: Reports none; Denies abdominal pain, chest pain with activity, leg edema, lightheadedness, palpitations, rapid heart rate or syncope Respiratory/Chest Respiratory/Chest: Reports none and cough; Denies change in mental status, dry cough, dyspnea, hemoptysis, shortness of breath at rest, shortness of breath with exertion or sputum Gastrointestinal Gastrointestinal: Reports none; Denies abdominal pain, change in stool character, diarrhea, hematemesis, hematochezia, melena, rectal bleeding or vomiting Genitourinary Genitourinary ED: Reports none; Denies abdominal discomfort, anuria, dysuria, genital pain or polyuria Musculoskeletal Musculoskeletal: Reports none; Denies arthralgias, back pain, difficulty walking, extremity pain, muscle weakness or myalgias Integumentary Reports none; Denies abscess or rash Neurologic Neurologic: Reports none; Denies abnormal gait, confusion, focal weakness, frequent falls, headache(s), loss of vision, numbness, paresthesias, radicular pain, vertigo or weakness Psychiatric Psychiatric: Reports systems reviewed and no addt'l complaints, except as documented and none; Denies behavioral changes, confusion, difficulty concentrating, hallucinations, suicidal ideation, tactile hallucinations or visual hallucinations Endocrine Endocrinology: Denies none, cold intolerance, excessive sweating, fatigue or heat intolerance Hematologic/Lymphatic Hematologic/Lymphatic: Reports none; Denies anemia, easy bleeding or easy bruising Allergic/Immunologic Allergic/Immunologic ED: Denies as per HPI, none, lip swelling, mouth swelling, throat swelling, tongue swelling or hives EXAM Physical Exam Const Vital Signs: 05/14/21 09:52 05/14/21 09:58 Temperature 97.4 F L Temperature Source Temporal Pulse Rate 103 H Respiratory Rate 16 Respiratory Effort Normal Non-Labored Respiratory Depth Normal Respiratory Pattern Normal Blood Pressure 128/62 H Blood Pressure Mean 84 Pulse Ox 100 Oxygen Delivery Method Room Air Positive well nourished and well developed General Appearance ED: well developed and NAD HEENT Reports TM's clear and moist mucous membranes normocephalic and atraumatic; Negative for trauma or tenderness Tympanic Membrane ED: Yes TM's clear Eyes PERRL and EOMs intact bilaterally General Eye ED: Negative for pale conjunctiva or scleral icterus Neck no lymphadenopathy, supple and no JVD General: Negative for tenderness Chest Wall inspection of chest normal and palpation of chest normal Chest: Negative for tenderness Resp normal respiratory effort and clear to auscultation bilaterally Effort and Inspection: Negative for respiratory distress or pain with movement Auscultation: Negative for rhonchi, wheezes or diminished lung sounds Cardio regular rate, regular rhythm, S1 normal heart sound, S2 normal heart sound and no murmurs Peripheral Pulses: pulses 2+ throughout GI normal to inspection, nondistended, normoactive bowel sounds, soft to palpation, non-tender, non-distended and no masses Back/Spine no CVA tenderness and no thoracic nor lumbar tenderness Extremity normal to inspection General Extremety ED: Negative for edema General Extremity: Negative for edema Neuro oriented x3, CN's II-XII intact bilaterally, no sensory deficits noted and gait normal Sensorium / Orientation: awake, alert, oriented to person, oriented to place and oriented to time Motor Exam: strength 5/5 throughout and strength abnormal Psych mental status grossly normal Skin no rashes or lesions noted and no wounds MDM MDM MDM Narrative Medical decision making narrative: Chest x-ray obtained interpreted by myself no acute disease process. Radiology in agreement. Patient's had symptoms for 3 weeks this point will cover for any bacterial atypical infection and will start on Zithromax. Patient advised to use Mucinex which is [id number]. Patient to follow-up with primary care physician certified professional coder for no doc within next 5 to 7 days. He is advised to return if increasing shortness of breath or condition should worsen anyway. Lab Data Attestation: I reviewed the patient's lab results. Radiography Diagnostic Testing: Clinical Impression(s) from Imaging Studies Chest X-Ray 05/14/21 10:13 IMPRESSION: Normal x-ray examination of the chest. Electronically Signed: Joe Nina MD at 10:34 EST , Discharge Plan Triage Chief Complaint: Cold Sx ED Provider: Maria Teresa Moreno Dx/Rx/DC Orders Clinical Impression: Bronchitis Instructions: ED Upper Resp Infec Abx Tx Prescriptions: New azithromycin [Zithromax Z-Jarred] 250 mg tablet 250 mg PO DAILY 5 Days Qty: 6 RF: 0 No Action albuterol sulfate [Ventolin HFA] 1 INHALER inhaler 2 puff inhalation Q4H PRN PRN (Reason: Wheezing) Qty: 1 RF: 0 doxycycline monohydrate 100 MG capsule 100 mg PO BID Qty: 20 RF: 0 Primary Care Provider: Care Physician,No Primary Referrals: Care Physician,No Primary [Primary Care Provider] - Disposition Disposition: Home, Self Care
== END 2021-05-14 12:23 | disposition home or self-care (01) ==
PROVIDERS: Emergency Provider Emergency Medicine; Visit Provider Emergency Medicine
DX: J40 Bronchitis, not specified as acute or chronic (principal); F17.210 Nicotine dependence, cigarettes, uncomplicated
CPT/HCPCS: 71045; 87426; 99282

== ENCOUNTER 2021-05-28 21:12 | Emergency (ER) | payer SELFPAY ==
[2021-05-28 21:12] VITALS: BP 132/63; PULSE 92; RESP 18; TEMP 36.5; O2SAT 97; BMI 28.1
--- NOTE | 2021-05-28 22:52 | EDS_ITS ---
HPI History of Present Illness Chief Complaint: Cough Informant: patient Narrative Narrative: Patient complains of exertional coughing. He has noticed that over the last few weeks when he walks a long distance especially uphill he will start coughing. The coughing will occasionally lead to vomiting. He states he gets a lot of wheezing when this happens. He is not having chest pain. He is not having hemoptysis. He does walk a couple miles each way to work. He is also a smoker and was counseled on the need to quit. He is not coughing up any sputum. No fevers or chills. No chest pain. He does have an inhaler. He is used it a couple times before he walks and it does seem to help if he does that. [facility] Medical History GERD (gastroesophageal reflux disease) Home Medications albuterol sulfate [Ventolin HFA] 2 puff INHALATION Q4H PRN PRN #1 inhaler 09/17/20 [Rx Last Taken Unknown] prednisone 60 mg PO DAILY #15 tab 05/28/21 [Rx Last Taken Unknown] Allergy/AdvReac Type Severity Reaction Status Date / Time SILVER AdvReac Mild Rash Uncoded 05/28/21 21:13 Social History Smoking Status: Current every day smoker tobacco type: cigarettes substance use type: does not use ROS ROS ED Constitutional Constitutional ED: Denies chills or fever(s) Eyes Eyes: Denies blurry vision ENT ENT ED: Denies ear pain, rhinorrhea or sore throat Cardiovascular Cardiovascular: Denies chest pain or palpitations Respiratory/Chest Respiratory/Chest: Reports cough and other Details: Wheezing. Also see history of present illness. ; Denies dyspnea or sputum Gastrointestinal Gastrointestinal: Denies nausea or vomiting Musculoskeletal Musculoskeletal: Denies arthralgias or myalgias Integumentary Denies rash Neurologic Neurologic: Denies headache(s) Psychiatric Psychiatric: Denies depression Endocrine Endocrinology: Denies polydipsia or polyuria Allergic/Immunologic Allergic/Immunologic ED: Denies mouth swelling, tongue swelling or urticaria EXAM Physical Exam Const Vital Signs: 05/28/21 21:12 Temperature 97.7 F L Temperature Source Temporal Pulse Rate 92 Respiratory Rate 18 Blood Pressure 132/63 H Blood Pressure Mean 86 Pulse Ox 97 Oxygen Delivery Method Room Air Positive well nourished and well developed Constitutional Narrative: Patient sitting quietly in the bed. He is very nontoxic in appearance. His breathing is easy and unlabored. General Appearance ED: well developed and NAD; Negative for cyanotic or diaphoretic HEENT Reports moist mucous membranes HEENT Narrative: Oropharynx is normal. No sinus tenderness. No visible nasal discharge. Negative for trauma Eyes EOMs intact bilaterally Neck supple and no JVD Neck Narrative: No stridor. No JVD. Chest Wall inspection of chest normal Resp normal respiratory effort and clear to auscultation bilaterally Resp Narrative: Patient has prolonged expiration. If I have him do a forced expiration he does have mild wheeze. But there are no rhonchi. No pain with a deep breath. Effort and Inspection: Negative for pain with movement Auscultation: Negative for rales or rhonchi Cardio regular rate and regular rhythm GI normal to inspection, nondistended, normoactive bowel sounds and non-tender Palpation: soft Back/Spine no CVA tenderness Extremity normal to inspection Neuro oriented x3 Sensorium / Orientation: alert Psych mental status grossly normal Skin no rashes or lesions noted and no wounds MDM MDM MDM Narrative Medical decision making narrative: Patient's history and exam is most consistent with bronchospasm especially exercise-induced. He is not bringing up sputum or having fevers or chills. No chest pain or hemoptysis or pleuritic component. He has an inhaler and I have encouraged him to use this before activity. I will give him a short course of steroids to try to calm this down. He is also once again encouraged heavily to stop smoking. Discharge Plan Triage Chief Complaint: Cough ED Provider: Carmine Mg Dx/Rx/DC Orders Clinical Impression: Acute bronchospasm Instructions: ED Bronchitis with Wheezing (Adult) Prescriptions: New prednisone 20 MG tablet 60 mg PO DAILY Qty: 15 RF: 0 No Action albuterol sulfate [Ventolin HFA] 1 INHALER inhaler 2 puff inhalation Q4H PRN PRN (Reason: Wheezing) Qty: 1 RF: 0 Primary Care Provider: Care Physician,No Primary Referrals: Romulo Gloria DO [STAFF PHYSICIAN] - 3-5 Days Care Physician,No Primary [Primary Care Provider] - Disposition Disposition: Home, Self Care
[2021-05-28] MEDS: predniSONE 20 MG Tablet 60 MG PO (23:00)
== END 2021-05-28 23:05 | disposition home or self-care (01) ==
PROVIDERS: Emergency Provider Emergency Medicine; Visit Provider Emergency Medicine
DX: J98.01 Acute bronchospasm (principal); F17.210 Nicotine dependence, cigarettes, uncomplicated
CPT/HCPCS: 99282

== ENCOUNTER 2021-07-03 16:01 | Emergency (ER) | payer SELFPAY ==
[2021-07-03 16:02] VITALS: BP 118/74; PULSE 73; RESP 14; TEMP 35.8; O2SAT 99; BMI 22.4
[2021-07-03 16:17] VITALS: BP 133/65; PULSE 71; TEMP 37.1; O2SAT 98
--- NOTE | 2021-07-03 16:27 | EKG12_ITS ---
Test Reason : Blood Pressure : / mmHG Vent. Rate : 062 BPM Atrial Rate : 062 BPM P-R Int : 142 ms QRS Dur : 102 ms QT Int : 382 ms P-R-T Axes : 062 066 021 degrees QTc Int : 387 ms Normal sinus rhythm with sinus arrhythmia Incomplete right bundle branch block Confirmed by SATYA JACKSON, HECTOR ([id number]), online editor NATE PASTOR ([id number]) on 07/05/2021 10:08:44 AM Referred By: Confirmed By:HECTOR HERNADEZ MD
--- NOTE | 2021-07-03 16:27 | EX.ED.DYSGE1 ---
HPI History of Present Illness Chief Complaint: Dizziness Informant: patient Narrative Narrative: 26-year-old male states that he was at work today. 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 He states he was profusely sweating and people told him he looked pale. He states that he sat down and took about 40 minutes for it to resolve and he felt better after drinking water. He states he was able to return to work but wanted to come and see what we found on evaluation. He states he has never had syncope before. He has never had DVT or PE. He denies any chest pain or shortness of breath. He denies any palpitations. No new medications. PFSH PFSH Medical History GERD (gastroesophageal reflux disease) Medical History no medical history Home Medications albuterol sulfate [Ventolin HFA] 2 puff INHALATION Q4H PRN PRN #1 inhaler 09/17/20 [Rx Last Taken Unknown] prednisone 60 mg PO DAILY #15 tab 05/28/21 [Rx Last Taken Unknown] Allergy/AdvReac Type Severity Reaction Status Date / Time SILVER AdvReac Mild Rash Uncoded 07/03/21 16:02 Family History Grandmother Diabetes Surgical History no surgical history Social History Smoking Status: Current every day smoker tobacco type: cigarettes Smoking packs per day: 1.5 Smoking cigarettes per day: 30.0 Tobacco: How many years used: 6 substance use type: does not use ROS ROS ED Constitutional Constitutional ED: Denies chills, fever(s) or weight loss Eyes Eyes: Denies change in vision or diplopia ENT ENT ED: Denies ear pain, rhinorrhea or sore throat Cardiovascular Cardiovascular: Reports other Details: near syncope ; Denies chest pain, orthopnea, palpitations or racing heartbeat Respiratory/Chest Respiratory/Chest: Denies cough, dyspnea or orthopnea Gastrointestinal Gastrointestinal: Denies abdominal pain, diarrhea, nausea or vomiting Genitourinary Genitourinary ED: Denies dysuria, hematuria or urinary frequency Musculoskeletal Musculoskeletal: Denies arthralgias or myalgias Integumentary Denies abscess or rash Neurologic Neurologic: Denies headache(s) or weakness Psychiatric Psychiatric: Denies anxiety, depression, suicidal ideation or suicidal thoughts Endocrine Endocrinology: Denies polydipsia, polyphagia or polyuria Allergic/Immunologic Allergic/Immunologic ED: Denies mouth swelling, tongue swelling or urticaria EXAM Physical Exam Const Vital Signs: 07/03/21 16:02 07/03/21 16:14 07/03/21 16:17 Temperature 96.4 F L 98.8 F Temperature Source Temporal Temporal Pulse Rate 73 71 Respiratory Rate 14 Respiratory Pattern Normal Blood Pressure 118/74 133/65 H Blood Pressure Mean 88 87 Pulse Ox 99 98 Oxygen Delivery Method Room Air Positive well nourished and well developed General Appearance ED: well developed HEENT Reports normocephalic, head/scalp atraumatic, TM's clear and moist mucous membranes Negative for trauma Tympanic Membrane ED: Yes TM's clear Eyes PERRL and EOMs intact bilaterally Neck no lymphadenopathy, supple and no JVD Resp normal respiratory effort and clear to auscultation bilaterally Cardio regular rate, regular rhythm and no murmurs GI normal to inspection, nondistended, normoactive bowel sounds and non-tender Palpation: soft Back/Spine no CVA tenderness and normal ROM Extremity normal to inspection General Extremety ED: Negative for edema General Extremity: Negative for edema Neuro oriented x3 and CN's II-XII intact bilaterally Sensorium / Orientation: alert Motor Exam: strength 5/5 throughout Psych mental status grossly normal Mood & Affect: Negative for depressed or tearful Skin no rashes or lesions noted and no wounds MDM MDM MDM Narrative Medical decision making narrative: My interpretation of the chest x-ray is no acute process normal mediastinal silhouette. CBC BMP showed glucose of 68. Troponin was negative. Patient is in a normal sinus rhythm on the monitor. He received Gatorade and cookies. I do not know what his blood sugar was at the time of the event. He was advised to make sure that he is eating a high-protein meal and taking in calories throughout the day. He was advised that should he continue to have near syncopal episodes or have syncope that he should continue his evaluation further. I will refer him to primary care. Patient is understanding of her plan Lab Data Attestation: I reviewed the patient's lab results. Labs: Laboratory Results - last 24 hr 07/03/21 07/03/21 16:40 16:40 WBC 8.2 RBC 4.64 Hgb 14.9 Hct 42.9 MCV 92.5 MCH 32.1 H MCHC 34.7 RDW Std Deviation 42.5 RDW Coeff of Kyle 12.4 Plt Count 201 MPV 9.4 Immature Gran % (Auto) 0.200 Neut % (Auto) 76.3 H Lymph % (Auto) 16.[address] [place] % (Auto) 5.8 Eos % (Auto) 0.4 Baso % (Auto) 0.4 Absolute Neuts (auto) 6.3 Absolute Lymphs (auto) 1.39 Nucleated RBC % 0 Sodium 142 Potassium 3.5 Chloride 106 Carbon Dioxide 30.0 Anion Gap 6 BUN 13 Creatinine 1.08 Estim Creat Clear Calc 95.98 Est GFR (MDRD) Af Amer 107 Est GFR (MDRD) Non-Af 88 BUN/Creatinine Ratio 12.0 Glucose 68 L Calcium 8.8 Troponin I High Sens < 3 L Radiography Diagnostic Testing: Clinical Impression(s) from Imaging Studies Chest X-Ray 07/03/21 16:53 IMPRESSION: Normal x-ray examination of the chest. Electronically Signed: Max Mg MD at 17:11 EDT Reading Location ID and State: [facility] / [place] , Service support , EKG Initial EKG: Attestation: I personally reviewed and interpreted this EKG as follows: Comments: Normal sinus rhythm with sinus arrhythmia with a ventricular rate of 62 bpm Discharge Plan Triage Chief Complaint: Dizziness ED Provider: Enoch Nazario Dx/Rx/DC Orders Clinical Impression: Near syncope, Hypoglycemia Instructions: ED Hypoglycemia, Nondiabetic, ED Near-Fainting, Uncertain Cause Prescriptions: No Action albuterol sulfate [Ventolin HFA] 1 INHALER inhaler 2 puff inhalation Q4H PRN PRN (Reason: Wheezing) Qty: 1 RF: 0 prednisone 20 MG tablet 60 mg PO DAILY Qty: 15 RF: 0 Primary Care Provider: Care Physician,No Primary Referrals: Felecia Cosby MD [STAFF PHYSICIAN] - 1-2 Weeks Care Physician,No Primary [Primary Care Provider] - Disposition Disposition: Home, Self Care
--- NOTE | 2021-07-03 16:53 | RAD_ITS ---
STUDY: X-RAY CHEST REASON FOR EXAM: Male, 26 years old. Near syncope TECHNIQUE: 2 AP portable views COMPARISON: 05/14/2021 FINDINGS: EKG leads overlie the chest The lungs are clear and expanded. There is no demonstrated pleural abnormality. Normal size heart. Normal mediastinum and saloni. Normal visualized pulmonary arteries. Normal visualized aortic arch and descending thoracic aorta. Normal visualized thoracic spine. Normal visualized ribs, clavicles, and shoulders. There is no demonstrated abnormality of the visualized soft tissue structures of the upper abdomen. RAD/Chest 1 View (Portable) IMPRESSION: Normal x-ray examination of the chest. Electronically Signed: Max Mg MD at 17:11 EDT ,
[2021-07-03 17:09] LABS: Absolute Lymphocyte Count 1.39 X10^3/uL (0.83-4.51); Absolute Neutrophil Count 6.3 X10^3/uL (2.0-7.7); Basophil# 0.03 X10^3/uL; Basophil% 0.4 % (0-1); Eosinophil# 0.03 X10^3/uL; Eosinophils% 0.4 % (0-5); Hematocrit 42.9 % (40-54); Hemoglobin 14.9 g/dL (13.0-16.5); Lymphocyte # 1.39 X10^3/ul (0.83-4.51); Lymphocyte % 16.9 % (19-41); Mean Corp Hgb Conc 34.7 g/dL (32-36); Mean Corpuscular Hgb 32.1 pg (27.0-32.0); Mean Corpuscular Volume 92.5 fL (80-94); Mean Platelet Vol. 9.4 fl (6.2-12.0); Monocyte# 0.48 X10^3/uL; Monocyte% 5.8 % (0-10); NRBC Flagged by Analyzer 0 % (0-5); Neutrophil # 6.26 X10^3/uL (2.7-7.7); Neutrophil % 76.3 % (47-70); Platelet Count 201 K/mm3 (150-450); RBC Distribution Width CV 12.4 % (11.6-14.6); RBC Distribution Width SD 42.5 fl (35.1-43.9); Red Blood Count 4.64 M/mm3 (4.6-6.2); White Blood Count 8.2 K/mm3 (4.4-11.0)
[2021-07-03 17:20] LABS: Anion Gap 6 (5-15); BUN 13 mg/dL (7-18); Calcium,Total 8.8 mg/dL (8.5-10.1); Chloride 106 mmol/L (98-107); Creatinine, Serum 1.08 mg/dL (0.70-1.30); EST Glomerular Filtration Rate 88 mL/min (>60); Est Glom Filt Rate - Afr Amer 107 mL/min (>60); Estimated Creatinine Clearance 95.98 ml/min; Glucose 68 mg/dL (74-106); Potassium 3.5 mmol/L (3.5-5.1); Sodium Level 142 mmol/L (136-145); Troponin-I HS < 3 pg/mL (3.0-78.0)
[2021-07-03 17:32] VITALS: PULSE 63; O2SAT 98
== END 2021-07-03 17:41 | disposition home or self-care (01) ==
PROVIDERS: Emergency Provider Emergency Medicine; Visit Provider Emergency Medicine
DX: E16.2 Hypoglycemia, unspecified (principal); F17.210 Nicotine dependence, cigarettes, uncomplicated; R55 Syncope and collapse
CPT/HCPCS: 71045; 80048; 84484; 85025; 93005; 99283; A4216

== ENCOUNTER 2021-08-26 12:09 | Emergency (ER) | payer SELFPAY ==
[2021-08-26 12:10] VITALS: BP 127/70; PULSE 84; RESP 16; TEMP 36.3; O2SAT 100; BMI 25.0
--- NOTE | 2021-08-26 12:15 | RAD_ITS ---
STUDY: X-RAY CHEST REASON FOR EXAM: Male, 26 years old. SOB TECHNIQUE: Single AP portable view of the chest. COMPARISON: 07/03/2021 FINDINGS: The lungs are clear and expanded. There is no demonstrated pleural abnormality. Normal size heart. Normal mediastinum and saloni. Normal visualized pulmonary arteries. Normal visualized aortic arch and descending thoracic aorta. Normal visualized thoracic spine. Normal visualized ribs, clavicles, and shoulders. There is no demonstrated abnormality of the visualized soft tissue structures of the upper abdomen. RAD/Chest 1 View (Portable) IMPRESSION: Normal x-ray examination of the chest. Electronically Signed: Jaguar Kelley MD at 12:49 EDT ,
--- NOTE | 2021-08-26 13:01 | EX.ED.DYSGE1 ---
HPI History of Present Illness Chief Complaint: Shortness of Breath Narrative Narrative: 26-year-old male here for shortness of breath. History of bronchitis, tobacco use. The patient states he has had 3 days of cough, productive yellow sputum. Denies any chest pain. Denies any shortness of breath. States he had a sick contact with his daughter. Patient states his symptoms are constant, severe without alleviating factors. Denies any recent travel, surgery. Old chart reviewed: Last ED visit for acute bronchospasm in May 2021 was given an inhaler and encouraged to stop smoking. And discharge. [facility] Medical History GERD (gastroesophageal reflux disease) Medical History no medical history Allergy/AdvReac Type Severity Reaction Status Date / Time SILVER AdvReac Mild Rash Uncoded 07/03/21 16:02 Family History Grandmother Diabetes Surgical History no surgical history Social History Smoking Status: Current every day smoker tobacco type: cigarettes Tobacco: How many years used: 6 substance use type: does not use ROS ROS ED Eyes Eyes: Denies other visual disturbances ENT ENT ED: Denies ear pain Cardiovascular Cardiovascular: Denies chest pain Respiratory/Chest Respiratory/Chest: Denies dyspnea Gastrointestinal Gastrointestinal: Denies abdominal pain Genitourinary Genitourinary ED: Denies dysuria Musculoskeletal Musculoskeletal: Denies joint pain Integumentary Denies rash Neurologic Neurologic: Denies dizziness, focal weakness, numbness, syncope or weakness Psychiatric Psychiatric: Denies homicidal ideation or suicidal ideation EXAM Physical Exam Const Vital Signs: 08/26/21 12:10 Temperature 97.3 F L Temperature Source Temporal Pulse Rate 84 Respiratory Rate 16 Blood Pressure 127/70 H Blood Pressure Mean 89 Pulse Ox 100 Oxygen Delivery Method Room Air Negative for alert or oriented x3 General Appearance ED: Negative for comfortable Orientation / Consciousness: Negative for awake HEENT Denies normocephalic HEENT Narrative: Patient was speaking full sentences, no stridor, no drooling Face and Sinus: Negative for face symmetric External Ear: Negative for external ears normal Mouth ED: No moist mucous membranes normal Throat: Negative for posterior oropharynx normal Eyes Negative for PERRL or EOMs intact bilaterally Neck No full ROM Carotids: other Other Details: no carotid bruits Chest Wall Negative for inspection of chest normal Resp No normal respiratory effort, No no retractions, No no use of accessory muscles and No clear to auscultation bilaterally Resp Narrative: No crepitus noted, bilateral breath sounds, clear to auscultation bilaterally, no wheezes, no rales, no increased work of breathing, no conversational dyspnea Cardio regular rate; Negative for no murmurs or peripheral pulses 2+ throughout GI Negative for no bruits GI Narrative: no pulsatile abdominal masses Negative for no CVA tenderness Back/Spine Cervical Spine: Negative for cervical ROM normal Extremity Negative for normal to inspection or full ROM MDM MDM MDM Narrative Medical decision making narrative: 26-year-old male here with cough, recent sick contact. Patient is hemodynamically stable, afebrile, nontoxic-appearing. Exam without focal cardiopulmonary abnormalities. X-ray was obtained to rule out pneumonia. X-ray was negative. Patient's likely several viral URI. Offered COVID testing however refused by patient. Patient remained hemodynamically stable appropriate for discharge home. There is no indication for further imaging, work-up or hospitalization at this time. Radiography Diagnostic Testing: Clinical Impression(s) from Imaging Studies Chest X-Ray 08/26/21 12:15 IMPRESSION: Normal x-ray examination of the chest. Electronically Signed: Jaguar Kelley MD at 12:49 EDT Reading Location ID and State: [facility] Tel , Service support , Chest x-ray personally reviewed by ri Treatment and Re-Evaluation Narrative: On reevaluation patient remained hemodynamically stable and appropriate for discharge home. Discharge Plan Triage Chief Complaint: Shortness of Breath ED Provider: Roland Link Dx/Rx/DC Orders Clinical Impression: Viral URI Instructions: ED URI, Viral, No Abx (Adult) Primary Care Provider: Care Physician,No Primary Referrals: Felecia Cosby MD [STAFF PHYSICIAN] - Care Physician,No Primary [Primary Care Provider] - Disposition Disposition: Home, Self Care
== END 2021-08-26 13:34 | disposition home or self-care (01) ==
PROVIDERS: Emergency Provider Emergency Medicine; Visit Provider Emergency Medicine
DX: J06.9 Acute upper respiratory infection, unspecified (principal); F17.210 Nicotine dependence, cigarettes, uncomplicated
CPT/HCPCS: 71045; 99282